=== PATIENT | male | born 1965 | race African-American/Black ===

== ENCOUNTER 2019-12-31 21:27 | Inpatient (IN) | payer OTHER, SELFPAY ==
--- NOTE | ~2019-12-31 | XR_ITS ---
EXAMINATION: XR chest 1V portable EXAM DATE: 01/05/2020 05:47 INDICATION: Cough, rising white blood cell count. TECHNIQUE: Portable AP frontal chest x-ray was obtained. Comparison is made to prior examination from 12/31/2019. FINDINGS: Interval development of patchy bibasilar opacities, some linear and some less well-defined involving left lower lobe more than right. No pneumothorax or pleural effusion. Cardiomediastinal darlin houette is normal. There are no osseous abnormalities identified. IMPRESSION: Development of lower lung zone infection and/or atelectasis. Reviewed, dictated and finalized at location A.
--- NOTE | ~2019-12-31 | XR_ITS ---
EXAMINATION: XR chest 1V portable INDICATION: Cough and weakness TECHNIQUE: Portable AP chest at 2315 hours COMPARISON: 01/06/2019 FINDINGS: The lungs are free of acute opacities. There is no pleural effusion or pneumothorax. The ca rdiomediastinal silhouette is normal. IMPRESSION: 1. No acute cardiopulmonary abnormality. Reviewed, dictated and finalized at location A.
--- NOTE | ~2019-12-31 | MR_ITS ---
EXAMINATION: MR brain/brain stem wo/w con DATE: 01/02/2020 16:00 INDICATION: Weakness. HIV. TECHNIQUE: Magnetic resonance imaging (MRI) of the brain and brainstem was performed without and with 10 mL Multihance intravenous contrast. Sequences included sagittal and axial T1-weighted SE, axial d iffusion-weighted FS SE, axial T2*-weighted GRE, axial T2-weighted FLAIR, and axial T2-weighted FSE. Postcontrast axial and coronal T1-weighted SE was obtained. Apparent diffusion coefficient (ADC) maps were created. COMPARISON: Head CT dated 01/01/2020 FINDINGS: There are no areas of restricted diffusion to suggest acute infarction. Small old lacunar infarct at the right thalamus. No intracranial hemorrhage. There are scattered areas of nonspecific increased T2 -weighted signal intensity in the cerebral white matter, predominantly involving the deep and periven tricular white matter. Atypically prominent increased T2 signal in the soraya. On postcontrast images t here is suggestion of subtle curvilinear enhancement at the periphery of a 4 mm lesion in the central soraya and 14 x 9 mm lesion at the slightly more cephalad left side of the soraya. Specificity on the po stcontrast images is however limited by motion artifact. There are no intraparenchymal signal abnorma lities seen on the other pulse sequences. The ventricles are symmetric and normal in size. There are no abnormal extra-axial fluid collections. Flow voids are seen in the cerebral arteries on the T2-lissa ghted sequences consistent with their expected patency. Visualized orbits and soft tissues are unrema rkable. There is some mucus opacifying the posterior left ethmoid air cell. Mild mucosal thickening i n the right maxillary sinus. IMPRESSION: 1. Atypically prominent nonspecific increased T2 signal in the soraya without restricted diffusion and with possible associated curvilinear enhancement on the postcontrast images. The postcontrast images are however limited by motion and the latter finding could be artifactual. Differential would include sequela of chronic small vessel ischemic disease, infectious encephalitis including HIV or secondary opportunistic infection, HIV related progressive multifocal leukoencephalopathy, malignancy such as astrocytoma or lymphoma and demyelinating disease such as multiple sclerosis. Consider contrast-enhan dae head CT more definitive assessment for enhancement. 2. Chronic old lacunar infarct at the right thalamus. Reviewed, dictated and finalized at location A. IMPRESSION: 1. Atypically prominent nonspecific increased T2 signal in the soraya without res tricted diffusion and with possible associated curvilinear enhancement on the p ostcontrast images. The postcontrast images are however limited by motion and t he latter finding could be artifactual. Differential would include sequela of c hronic small vessel ischemic disease, infectious encephalitis including HIV or secondary opportunistic infection, HIV related progressive multifocal leukoence phalopathy, malignancy such as astrocytoma or lymphoma and demyelinating diseas e such as multiple sclerosis. Consider contrast-enhanced head CT more definitiv e assessment for enhancement. 2. Chronic old lacunar infarct at the right thalamus.
--- NOTE | ~2019-12-31 | CT_ITS ---
EXAMINATION: CT brain wo/w con DATE: 01/03/2020 13:36 INDICATION: Pontine disease. HIV. TECHNIQUE: Computed tomography (CT) of the head was performed without and with 100 mL Omnipaque 350 i ntravenous contrast. The mA was adjusted according to patient size. Iterative reconstruction techniqu e was employed. The dose-length product was 1210.67 mGy-cm. COMPARISON: Head CT 01/01/2020, brain MRI 01/02/2020 FINDINGS: There are old lacunar infarcts involving the right thalamus, right caudate nucleus, left ba abigail ganglia, and anterior limb of left internal capsule. There are scattered areas of low attenuation in the cerebral white matter. There is no intracranial hemorrhage or acute infarction. There is a 5 mm enhancing lesion in the soraya. There are areas of contrast enhancement in the left frontoparietal d eep white matter. There is expected dilatation of anterior body of left lateral ventricle. There is m ild mucosal thickening in the paranasal sinuses. The orbits are normal. There is a trace right mastoi d effusion. IMPRESSION: 1. Enhancing lesions in the soraya and left frontoparietal deep white matter. The differential diagnosi s includes subacute infarcts, immune reconstitution inflammatory syndrome, infection, and lymphoma. 2. Moderate nonspecific cerebral white matter disease. The differential diagnosis includes chronic sm all vessel ischemic disease, HIV encephalopathy, and progressive multifocal leukoencephalopathy. 3. Old lacunar infarcts involving the right thalamus, bilateral basal ganglia, and anterior limb left internal capsule. Reviewed, dictated and finalized at location B. IMPRESSION: 1. Enhancing lesions in the soraya and left frontoparietal deep white matter. The differential diagnosis includes subacute infarcts, immune reconstitution infla mmatory syndrome, infection, and lymphoma. 2. Moderate nonspecific cerebral white matter disease. The differential diagnos is includes chronic small vessel ischemic disease, HIV encephalopathy, and prog ressive multifocal leukoencephalopathy. 3. Old lacunar infarcts involving the right thalamus, bilateral basal ganglia, and anterior limb left internal capsule.
--- NOTE | ~2019-12-31 | XR_ITS ---
XR hip LT min 3V w AP pelvis 01/02/2020 20:24 Indication: Hip pain. No known injury. Procedure: AP pelvis and 3 views left hip Comparison: 01/07/2019 Findings: Pelvic rings are intact. Stable sclerotic lesion of the right femoral head, consistent with osteonecrosis. There is patchy ostial lysis and sclerosis of the left femoral head with collapse of the superior articular surface. There is secondary osteoarthritis of the left hip. No significant sof t tissue abnormality. No foreign bodies. 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 2: No significant change to osteonecrosis of the left femoral head with articular surface collapse. S table secondary osteoarthritis. Reviewed, dictated and finalized at location A. 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 2: No significant change to osteonecrosis of the left femoral head with articul ar surface collapse. Stable secondary osteoarthritis.
--- NOTE | ~2019-12-31 | CT_ITS ---
EXAMINATION: CT brain wo con INDICATION: Weakness, history of stroke COMPARISON: None TECHNIQUE: Standard unenhanced head CT. The dose-length product (DLP) was 605.33 mGy-cm. The mA was a djusted according to patient size. Iterative reconstruction technique was employed. FINDINGS: There is no intracranial hemorrhage, acute infarction, or abnormal mass lesion. There is an area of prior infarction in the left basal ganglia with ex vacuo enlargement of the anterior horn of the left lateral ventricle. There is no abnormal mass effect or midline shift. The mendieta-white matter differentiation is normal. The basal cisterns are patent. The orbits are normal. There is mild mucos al thickening of the paranasal sinuses. IMPRESSION: 1. No acute intracranial abnormality. Reviewed, dictated and finalized at location A.
--- NOTE | ~2019-12-31 | CT_ITS ---
EXAMINATION: CT brain wo/w con DATE: 01/11/2020 14:40 INDICATION: Pontine mass. TECHNIQUE: Computed tomography (CT) of the head was performed without and with 100 mL Omnipaque 350 i ntravenous contrast. The mA was adjusted according to patient size. Iterative reconstruction techniqu e was employed. The dose-length product was 1362.00 mGy-cm. COMPARISON: Head CT 01/03/2020, brain MRI 01/02/2020 FINDINGS: There are old lacunar infarcts involving the bilateral thalami, bilateral basal ganglia, an d anterior limb left internal capsule. There are scattered areas of low attenuation in the cerebral w raffaele matter. There is a 10 mm enhancing mass in the left frontal lobe deep white matter. There is a 6 mm enhancing mass in the right frontoparietal deep white matter. Abnormal enhancement is not detecte d in the soraya, but MRI would be more sensitive. The ventricles are normal in size. There is mild muco abigail thickening in the paranasal sinuses. There is a trace right mastoid effusion. The orbits are norm al. IMPRESSION: 1. Faintly enhancing lesions in the left frontal lobe deep white matter and right frontoparietal deep white matter similar to the prior exam. The differential diagnosis includes subacute infarcts, immun e reconstitution inflammatory syndrome, infection, and lymphoma. 2. Stable moderate nonspecific cerebral white matter disease. The differential diagnosis includes chr onic small vessel ischemic disease, HIV encephalopathy, and progressive multifocal leukoencephalopath y. 3. Old lacunar infarcts in the thalami, bilateral basal ganglia, and anterior limb left internal caps ule. Reviewed, dictated and finalized at location A. IMPRESSION: 1. Faintly enhancing lesions in the left frontal lobe deep white matter and rig ht frontoparietal deep white matter similar to the prior exam. The differential diagnosis includes subacute infarcts, immune reconstitution inflammatory syndr ome, infection, and lymphoma. 2. Stable moderate nonspecific cerebral white matter disease. The differential diagnosis includes chronic small vessel ischemic disease, HIV encephalopathy, a nd progressive multifocal leukoencephalopathy. 3. Old lacunar infarcts in the thalami, bilateral basal ganglia, and anterior l imb left internal capsule.
--- NOTE | ~2019-12-31 | XR_ITS ---
EXAMINATION: XR lumbar puncture diagnostic DATE: 01/05/2020 15:05 INDICATION: Weakness. Enhancing pontine lesion. TECHNIQUE: The procedure including the risks and benefits was discussed with the patient. Risks discu ssed included spinal headache, cerebrospinal fluid leak, bleeding, and infection. The patient underst ood the risks and agreed to proceed. A timeout was performed to verify the patient's name, date of , and procedure to be performed. The skin overlying the L4-L5 level was prepped and draped in usual sterile fashion. Subcutaneous 1% lidocaine was used for local anesthesia. A 22 gauge spinal n eedle was advanced under fluoroscopic guidance. The needle was removed and the entry site was cleaned and dressed. There were no immediate complications. . FINDINGS: Real-time fluoroscopy demonstrates the needle at the L4-L5 level. Opening pressure was 13 c m water. (Normal range is variably defined as 6-20 cm water and up to 25 cm water in obese patients. Pressure >25 cm water is one of the modified Dandy criteria for idiopathic intracranial hypertension) . 14 mL of clear, colorless fluid was collected in 4 tubes. IMPRESSION: 1. Successful fluoro-guided lumbar puncture. Reviewed, dictated and finalized at location A.
--- NOTE | ~2019-12-31 | US_ITS ---
EXAMINATION: US renal BI DATE: 01/04/2020 08:48 INDICATION: Worsening kidney function. TECHNIQUE: Multiple ultrasound grayscale images of the kidneys were obtained. COMPARISON: None. FINDINGS: The right kidney measures 9.4 x 4.8 x 5.1 cm. The left kidney measures 9.1 x 5.5 x 4.1 cm. The kidney s demonstrate normal parenchymal echogenicity. There is no hydronephrosis. The bladder is not well di stended. IMPRESSION: 1. Normal kidneys. No hydronephrosis. Reviewed, dictated and finalized at location B.
[2019-12-31 21:32] VITALS: BP 119/81; PULSE 100; RESP 18; TEMP 37.2; O2SAT 100
--- NOTE | 2019-12-31 21:53 | ED.GENADULT ---
HPI - General Adult General Chief complaint: Weakness Stated complaint: WEAKNESS Time Seen by Provider: 12/31/19 21:42 History of Present Illness HPI narrative: Patient is a 54-year-old male who presents the ER with increased weakness. History of CVA that left him using a walker and having some difficulty with speaking and with memory. Brought in by his sister. Patient's been urinating more frequently than usual and has had a stronger smell to urine. No fevers or chills or sweats. He is also been coughing for the last month. No known sick contacts. No known covered tonic contacts either. Patient has been so weak over the last 24 hours they have been using wheelchair to mobilize him around. Related Data Home Medications Medication Instructions Recorded Confirmed nhftinnkz-blcihjqq-[id number] ala 1 tablet PO DAILY 01/01/20 01/01/20 [Biktarvy] Allergies Allergy/AdvReac Type Severity Reaction Status Date / Time No Known Allergies Allergy Verified 01/01/20 05:19 Review of Systems Review of Systems: All systems reviewed & are unremarkable except as noted in HPI and below Constitutional: Constitutional: Denies chills, Denies fever(s) and Reports weakness ENT: Denies nasal congestion and Denies sore throat Cardiovascular: Cardiovascular: Denies chest pain and Denies rapid heart rate Respiratory: Respiratory: Reports cough and Denies dyspnea Gastrointestinal: Gastrointestinal: Denies abdominal pain, Denies nausea and Denies vomiting Genitourinary: Genitourinary: Denies dysuria and Reports urinary frequency PMFSH Past Medical History Medical History (Updated 01/01/20 @ 06:51 by Adeel Recinos MD) Elevated alkaline phosphatase level Encephalopathy H/O: HTN (hypertension) History of stroke with current residual effects HIV (human immunodeficiency virus infection) HSV (herpes simplex virus) infection Oral candidiasis UTI (urinary tract infection) Surgical History Surgical History (Updated 04/14/19 @ 13:19 by Giovanni Maradiaga) No history of previous surgery Social History Social History (Updated 04/19/19 @ 10:47 by Lindy Malik) Years smoked: 9 Smoking status: Light tobacco smoker Tobacco type: cigarettes Second hand tobacco smoke exposure: Yes Alcohol intake: never Substance use: never Substance use type: does not use Gender identity (if verbalized by the patient): Male Sexual Orientation (if Verbalized by the Patient): Lesbian, Garcia, or Homosexual Spiritual care concerns: No Exam Narrative: Exam Narrative: GENERAL: Well-appearing, well-nourished, and in no acute distress. HEAD: Normocephalic, atraumatic. ENT: Mucous membranes moist. CHEST: Clear to auscultation. No respiratory distress. HEART: Regular rate and rhythm. Normal peripheral pulses. ABDOMEN: Soft, nontender, nondistended. SKIN: Warm, dry, no rash. NEURO: Alert and oriented x3. PSYCH: Normal mood and affect. Course Reevaluation(s) Reevaluation #1: Asx V-Tach on the monitor. Date: 12/31/19 Time: 22:01 Reevaluation #2: Discussed with Dr. Coulter. Recommends admission and echo. No amiodarone at this time as ectopy has resolved. Date: 12/31/19 Time: 22:11 Vital Signs Vital signs: Vital Signs Temperature 99.0 F 12/31/19 21:32 Pulse Rate 100 12/31/19 21:32 Respiratory Rate 18 12/31/19 21:32 Blood Pressure 119/81 12/31/19 21:32 Pulse Oximetry 100 12/31/19 21:32 Temperature 97.8 F 01/01/20 04:40 Pulse Rate 69 01/01/20 04:40 Respiratory Rate 18 01/01/20 04:40 Blood Pressure 140/85 01/01/20 04:40 Pulse Oximetry 100 01/01/20 04:40 Medical Decision Making Vital Signs Vital Signs: Vital Signs Temperature 99.0 F 12/31/19 21:32 Pulse Rate 100 12/31/19 21:32 Respiratory Rate 18 12/31/19 21:32 Blood Pressure 119/81 12/31/19 21:32 Pulse Oximetry 100 12/31/19 21:32 Temperature 97.8 F 01/01/20 04:40 Pulse Rate 69 01/01/20 04:40 Respiratory
--- NOTE | 2019-12-31 22:01 | ECG_ITS ---
Measurements Intervals [place] Rate: 84 P: 30 MS: 184 QRS: -33 QRSD: 101 T: 58 QT: 390 QTc: 463 Interpretive Statements SINUS RHYTHM LEFT AXIS DEVIATION LOW QRS VOLTAGE IN PRECORDIAL LEADS BORDERLINE R WAVE PROGRESSION, ANTERIOR LEADS BORDERLINE T WAVE ABNORMALITY- DIFFUSE LEADS BASELINE ARTIFACT- V3-V4 BORDERLINE ECG Electronically Signed On 01-01-2020 7:02:33 CDT by Mal Muhammad D.O.
[2019-12-31 22:17] LABS: Basophils Absolute Auto 0.1 K/mm3 (0.0-0.1); Basophils Percent Auto 0.8 % (0.2-1.2); Eosinophils Absolute Auto 0.1 K/mm3 (0-0.3); Eosinophils Percent Auto 0.9 % (0-4.4); Hematocrit 29.2 % (42.0-52.0); Hemoglobin 9.1 g/dL (14.0-18.0); Immature Granulocyte Absolute 0.03 K/mm3 (0.00-0.031); Immature Granulocyte Percent A 0.3 % (0-0.5); Lymphocytes Absolute Auto 1.69 K/mm3 (0.9-3.2); Lymphocytes Percent Auto 16.5 % (18.3-44.2); Mean Corpuscular HGB Conc 31.2 g/dl (32-36); Mean Corpuscular Hemoglobin 24.5 pg (26-34); Mean Corpuscular Volume 78.7 fl (80-100); Mean Platelet Volume 9.2 fl (7.4-10.4); Monocytes Absolute Auto 0.7 K/mm3 (0.1-0.6); Monocytes Percent Auto 6.8 % (2.6-8.5); Neutrophils Absolute Auto 7.7 K/mm3 (1.3-6.7); Neutrophils Percent Auto 74.7 % (45.5-73.1); Platelet Count Result 402 k/mm3 (150-375); Red Blood Count 3.71 M/mm3 (4.6-6.20); Red Cell Distribution Width 18.6 % (11.5-14.5); White Blood Count 10.2 K/mm3 (4.5-10.0)
[2019-12-31] MEDS: SODIUM CHLORIDE 0.9% IV 1,000 ML 999 ML IV CONT (22:22)
[2019-12-31 22:30] LABS: Alanine Aminotransferase 9 U/L (4-50); Albumin Level 3.9 g/dL (3.5-5.1); Alkaline Phosphatase 167 U/L (38-126); Anion Gap 13 mmol/L (8-16); Aspartate Amino Transferase 26 U/L (17-59); Bilirubin,Total 0.3 mg/dL (0.2-1.3); Blood Urea Nitrogen 13 mg/dL (9-20); Calcium 9.5 mg/dL (8.4-10.2); Carbon Dioxide 23 mmol/L (22-30); Chloride 103 mmol/L (98-107); Estimated CRCL calculation 56 ml/min; Estimated Glomerular Filt Rate > 60; Glucose 116 mg/dL (75-110); Magnesium 2.3 mg/dL (1.6-2.3); Potassium 3.5 mmol/L (3.4-5.0); Sodium 139 mmol/L (137-145)
[2019-12-31 22:39] LABS: INR 1.1; Partial Thromboplastin Time 35.9 SECONDS (22.3-36.8); Prothrombin Time 14.3 Seconds (11.1-14.7)
[2019-12-31 22:40] LABS: Troponin I < 0.012 ng/mL (0.000-0.034)
[2019-12-31 22:48] LABS: Add Urine Microscopic? YES; Appearance Urine Cloudy (Clear); Bacteria Urine Trace /hpf; Bilirubin Urine Negative (Negative); Blood Urine Negative (Negative); Color Urine Yellow (Yellow); Glucose Urine UA Negative (Negative); Ketones Urine Negative (Negative); Leukocyte Esterase Ur Negative LEU/UL (Negative); Mucus Urine Rare /lpf; Nitrate Urine Negative (Negative); Protein Urine 1+ mg/dL (Negative); RBC Urine 0-2 /hpf (0-2); Specific Grav Ur 1.015 (1.001-1.035); Urobilinogen Urine Negative mg/dL (<2.0); WBC Urine 0-3 /hpf
[2019-12-31 23:45] VITALS: BP 126/92; PULSE 78; RESP 20; O2SAT 100
[2020-01-01] VITALS (11 sets, daily range): BP systolic 125–140; BP diastolic 73–94; PULSE 60–87; RESP 12–22; TEMP 35.8–36.9; O2SAT 100; BMI 17.7
--- NOTE | 2020-01-01 04:56 | ADMGEN ---
This patient, Justyn Jacob, was admitted to IMU Room 212-01 on 01/01/20 at 0435. Patient/family oriented to hospital policies and general routines including ID bracelet, bed and alarms, visiting hours, pain management, procedures, bathroom and other care routines, personal items, smoking policy, room service/diet, and visiting hours. Valuables list has been completed. Information on how to activate the Rapid Response Team has been discussed. Patient/Family are encouraged to report perceived risks to care and to ask questions if they do not understand what they are told or what they should do.
--- NOTE | 2020-01-01 08:13 | PM.IMHP ---
H&P: HPI History of Present Illness Date/Time: 01/01/20 08:13 Chief complaint: Weakness, V-Tach Nonsustained Narrative: Justyn Jacob is a 54yo male with hx of CVA and HIV here for increasing weakness. History of CVA with residual left sided weakness requiring walker, dysarthria and memory loss. He lives with his sister who states patient is independent with ADLs. Patient states he has been weak over the past month. He has also had a slight nonproductive cough during this time. He denies any fever, chills, chest pain, shortness of breath, nausea, vomiting, diarrhea, constipation, melena, hematochezia, dysuria, hematuria, leg pain, back pain, abdominal pain, headache. History is limited because of his dysarthria and memory issues. Sister was called and history was supplemented by her. Patient was doing well until 3 days before admission when he stopped eating and drinking for unclear reasons. He was tolerating the Ensure. The family called the primary care doctor and sodium tablets were called in. Patient has had similar issues with weakness related to hyponatremia in the past. Patient normally is independent with his ADLs. However over the past few days he has been wetting the bed. There has been no symptoms such as fever, chills, seizure-like activity but the patient seem to shake when he was standing. Besides sodium tablets, there have been no medication changes. Because of the weakness patient is brought to the emergency room evaluation. In the emergency room, patient was hemodynamically stable. Chest x-ray was clear. He had no acute EKG findings. Lab work was unrevealing. There was a episode of abnormal heart rhythm concerning for nonsustained V-tach. Although on evaluation, it appears to be related to artifact. Patient admitted to the IMU for further care. Review of Systems Review of Systems: All systems reviewed & are unremarkable except as noted in HPI and below PMFSH Past Medical History Medical History (Updated 01/02/20 @ 19:52 by Vaughn Vang MD) Chronic anemia Elevated alkaline phosphatase level Encephalopathy H/O: HTN (hypertension) History of stroke with current residual effects HIV (human immunodeficiency virus infection) HSV (herpes simplex virus) infection Oral candidiasis Osteoarthritis of left hip UTI (urinary tract infection) Surgical History Surgical History No history of previous surgery Family History Family History Father Hypertension Mother Myocardial infarction Cancer Hypertension Cerebrovascular accident Sibling Cancer Cerebrovascular accident Acute Crohn's disease Social History Social History Social History: Smokes half pack a day. No drug use. Occasion drinks alcohol. Lives with the sister. Patient is full code. he nominates his sister to be the individual would make medical decisions for him Years smoked: 9 Smoking status: Light tobacco smoker Tobacco type: cigarettes Second hand tobacco smoke exposure: Yes Alcohol intake: never Substance use: never Substance use type: does not use Gender identity (if verbalized by the patient): Male Sexual Orientation (if Verbalized by the Patient): Lesbian, Garcia, or Homosexual Spiritual care concerns: No Meds Home Medications and Allergies Home Medications Medication Instructions Recorded Confirmed Type valacyclovir 500 mg tablet 500 mg PO DAILY #90 tablet 04/19/19 01/01/20 Rx amlodipine 10 mg tablet 10 mg PO DAILY #90 tablet 11/18/19 01/01/20 Rx nystatin 100,000 unit/mL oral 5 ml PO QID #250 ml 12/20/19 01/01/20 Rx suspension sodium chloride 1 gram tablet 1,000 mg PO DAILY #30 tablet 12/30/19 01/01/20 Rx [id number]-cymcouvz-msrufli ala 1 tablet PO DAILY 01/01/20 01/01/20 History [Biktarvy] Allergies Allergy/AdvReac Type Severity Mica
--- NOTE | 2020-01-01 09:50 | PM.CNCAR ---
History of Present Illness History of Present Illness Consult date/time: 01/01/20 09:50 date of consult: 01/01/2020 reason for consult: Requesting physician: Chief complaint: HPI: EKG upon presentation which I personally evaluated showed sinus rhythm, leftward axis, poor R-wave progression, nonspecific T-wave abnormality. Serial troponins are negative. Chest x-ray is unremarkable. Reason For Visit: Weakness, V-Tach Nonsustained Review of Systems Constitutional: Constitutional: Denies chills, Denies fatigue, Denies fever(s) and Denies headache(s) Eyes: Eyes: Reports as per HPI, Denies change in vision, Denies loss of vision and Denies eye pain ENT: Reports as per HPI, Reports Normal hearing present, Denies headache(s), Denies lip swelling, Denies epistaxis and Denies sore throat Cardiovascular: Cardiovascular: Reports as per HPI, Denies chest pain, Denies syncope, Denies irregular heart rhythm, Denies lightheadedness and Denies dyspnea Respiratory: Respiratory: Reports as per HPI, Denies cough, Denies dyspnea and Denies wheezing Gastrointestinal: Gastrointestinal: Reports as per HPI, Denies abdominal pain, Denies melena, Denies nausea and Denies vomiting Genitourinary: Genitourinary: Reports as per HPI Musculoskeletal: Musculoskeletal: Reports as per HPI, Denies myalgias, Denies muscle cramps and Denies muscle weakness Integumentary/Breasts: Skin/Breast: Reports as per HPI, Denies pruritus and Denies rash Neurologic: Reports as per HPI, Reports Normal hearing present, Denies behavioral changes, Denies syncope, Denies headache(s) and Denies loss of vision Psychiatric: Psychiatric: Reports as per HPI, Denies anxiety, Denies behavioral changes and Denies depression Endocrine: Endocrine: Reports as per HPI, Denies fatigue, Denies polydipsia and Denies polyuria Hematologic/Lymphatic: Hematologic/Lymphatic: Reports as per HPI, Denies easy bleeding and Denies easy bruising Allergic/Immunologic: Allergic/Immunologic: Reports as per HPI, Denies lip swelling and Denies wheezing PMFSH Past Medical History Medical History Chronic anemia Elevated alkaline phosphatase level Encephalopathy H/O: HTN (hypertension) History of stroke with current residual effects HIV (human immunodeficiency virus infection) HSV (herpes simplex virus) infection Oral candidiasis UTI (urinary tract infection) Surgical History Surgical History No history of previous surgery Family History Family History Father Hypertension Mother Myocardial infarction Cancer Hypertension Cerebrovascular accident Sibling Cancer Cerebrovascular accident Acute Crohn's disease Social History Social History Social History: Smokes half pack a day. No drug use. Occasion drinks alcohol. Lives with the sister. Patient is full code. he nominates his sister to be the individual would make medical decisions for him Years smoked: 9 Smoking status: Light tobacco smoker Tobacco type: cigarettes Second hand tobacco smoke exposure: Yes Alcohol intake: never Substance use: never Substance use type: does not use Gender identity (if verbalized by the patient): Male Sexual Orientation (if Verbalized by the Patient): Lesbian, Garcia, or Homosexual Spiritual care concerns: No Meds Home Medications and Allergies Home Medications Medication Instructions Recorded Confirmed Type valacyclovir 500 mg tablet 500 mg PO DAILY #90 tablet 04/19/19 01/01/20 Rx amlodipine 10 mg tablet 10 mg PO DAILY #90 tablet 11/18/19 01/01/20 Rx nystatin 100,000 unit/mL oral 5 ml PO QID #250 ml 12/20/19 01/01/20 Rx suspension sodium chloride 1 gram tablet 1,000 mg PO DAILY #30 tablet 12/30/19 01/01/20 Rx [id number] ala 1 tablet PO DAILY
--- NOTE | 2020-01-01 11:54 | PCSTNOTE ---
Bedside swallow evaluation complete. Please seen ST evaluation for details and diet recommendations.
[2020-01-01] MEDS: ENOXAPARIN 40 MG/0.4 ML SYRINGE SUB-Q (12:04)
--- NOTE | 2020-01-01 14:06 | PHAR ---
HOME MED VERIFIED BIKTARVY 50/200/25 ONE TABLET DAILY
--- NOTE | 2020-01-01 16:44 | PC.NURSE ---
This patient, Justyn Jacob, was received from [imu ] on 01/01/20 at 1635. Personal belongings list checked and signed. Patient/family oriented to unit policies and routines. Report received from Miladys.
--- NOTE | 2020-01-01 18:13 | PC.NURSE ---
This patient, Justyn Jacob, was transferred to [facility][ ] on 01/01/20 at 1630. Personal belongings sent with patient. Belongings list checked and signed with receiving [ ]. Report given to [Jero ]. Appropriate documentation sent with patient.
[2020-01-02 02:00] VITALS: BP 117/84; PULSE 85; RESP 20; TEMP 36.9; O2SAT 100
[2020-01-02 06:00] VITALS: BP 137/82; PULSE 75; RESP 16; TEMP 36.7; O2SAT 100
[2020-01-02] MEDS: amLODIPine BESYLATE 5 MG TABLET 10 MG PO (09:08)
[2020-01-02] MEDS: valACYclovir HCL 500 MG TABLET PO (09:08)
[2020-01-02] MEDS: ENOXAPARIN 40 MG/0.4 ML SYRINGE SUB-Q (09:08)
[2020-01-02] MEDS: DOCUSATE SODIUM 100 MG CAPSULE PO ×2 (10:31→22:01)
[2020-01-02 10:58] VITALS: BMI 17.5
[2020-01-02 14:00] VITALS: BP 134/94; PULSE 111; RESP 18; TEMP 36.9; O2SAT 99
--- NOTE | 2020-01-02 19:17 | PM.IMPN ---
Progress Note: A&P Assessment and Plan (1) Weakness: Code(s): R53.1 - Weakness Status: Acute Assessment and Plan: Etiology unclear. Sister states patient may be acting up because she will not let him drink soda continuously without at least drinking some water. CT of the brain showing no acute process. Leg giving out could be related to his general left sided weakness (but old CVA was left basal ganglia so does not fit clinically), +/- new CVA +/- HIV related +/- related to chronic left hip pain. Proceeded with MRI which showed no acute CVA but does show old right thalamus lacunar CVA - no mention of left basal ganglia lesion (called to clarify with radiology by no answer) but this could explain the left sided weakness. However, MRI also showing possible lesion in the soraya. Will proceed with contrast-enhanced CT brain to further delineate. Neuro consult. May need LP (2) Lesion of soraya: Code(s): G93.9 - Disorder of brain, unspecified Status: Acute Assessment and Plan: As above. (3) Osteoarthritis of left hip: Code(s): M16.12 - Unilateral primary osteoarthritis, left hip Status: Acute Assessment and Plan: Hip xray in December 2018 showing: Osteonecrosis of bilateral femoral heads and left hip articular surface collapse and secondary moderate to severe left hip osteoarthritis. Spoke with Dr Cuello who reviewed the films and recommended left hip injection (he provided the appropriate doses and read back). Will order xrays. Hip injection ordered but in light of the MRI findings, will hold the injection until the above can be further evaluated. (4) Essential hypertension: Code(s): I10 - Essential (primary) hypertension Status: Acute Assessment and Plan: Blood pressure well controlled. Continue Norvasc. Continue to monitor. (5) HIV (human immunodeficiency virus infection): Code(s): B20 - Human immunodeficiency virus [HIV] disease Status: Acute Assessment and Plan: As above. Continue Biktarvy. Family may need to bring this in. (6) History of stroke with residual effects: Code(s): I69.30 - Unspecified sequelae of cerebral infarction Status: Acute Assessment and Plan: As above. Continue PT and OT. (7) DVT prophylaxis: Code(s): Z29.9 - Encounter for prophylactic measures, unspecified Status: Acute Assessment and Plan: Lovenox (8) Non-sustained ventricular tachycardia: Code(s): I47.2 - Ventricular tachycardia Status: Acute Assessment and Plan: Telemetry strip reviewed and this is more consistent with artifact than nonsustained V-tach. Telemetry stopped adn Cardiology consult cancelled. Subjective Date/time seen: 01/02/20 19:17 Interval history: 54yo male with HIV here for weakness. Patient eating okay. No CP. Feels well. No abd pain. No BM in 5 days. Patient complains of hip pain and then points to his left hip. Spoke with sister by phone and she stated that the patient is due for another hip injection (last one was February). Patient seen earlier in the day. Called by RN later and informed that when he walked, his left leg gave out. Exam Narrative: Exam Narrative: AF 134/94 111 18 99% ra Gen - NARD Chest - CTA bilaterally, nml RR CV - RRR S1/S2, nml RR Abd - soft, NT/ND, +BS Ext - no pedal edema; Nml passive ROM left hip Neuro - dysarthric speech. Mild left-sided weakness. Psych - normal mood and affect. Skin -Diffuse dry scaly skin with flaking. Objective Data Vital Signs Vital Signs: Vital Signs - 24 hr 01/01/20 22:00 01/02/20 02:00 01/02/20 06:00 Temperature 98 F 98.4 F 98.1 F Pulse Rate 82 85 75 Respiratory Rate 16 20 16 Blood Pressure 134/84 117/84 137/82 Pulse Oximetry 100 100 100 01/02/20 14:00 Temperature 98.4 F Pulse Rate 111 H Respiratory Rate 18 Blood Pressure 134/94 H Pul
[2020-01-02 22:00] VITALS: BP 122/83; PULSE 94; RESP 20; TEMP 37.5; O2SAT 92
[2020-01-03 06:22] LABS: Hemoglobin 9.5 g/dL (14.0-18.0); Mean Corpuscular HGB Conc 31.7 g/dl (32-36); Mean Corpuscular Hemoglobin 24.5 pg (26-34); Mean Corpuscular Volume 77.3 fl (80-100); Mean Platelet Volume 8.6 fl (7.4-10.4); Platelet Count Result 445 k/mm3 (150-375); Red Blood Count 3.88 M/mm3 (4.6-6.20); White Blood Count 13.6 K/mm3 (4.5-10.0)
[2020-01-03 06:39] LABS: Anion Gap 11 mmol/L (8-16); Blood Urea Nitrogen 14 mg/dL (9-20); Calcium 9.6 mg/dL (8.4-10.2); Carbon Dioxide 25 mmol/L (22-30); Chloride 99 mmol/L (98-107); Estimated CRCL calculation 46 ml/min; Estimated Glomerular Filt Rate > 60; Glucose 93 mg/dL (75-110); Potassium 3.1 mmol/L (3.4-5.0); Sodium 135 mmol/L (137-145)
[2020-01-03 07:07] LABS: Iron 30 ug/dL (49-181)
[2020-01-03 07:17] LABS: Percent Iron Saturation 10 % (20-50)
[2020-01-03 07:39] LABS: Thyroid Stimulating Hormone Reflex 0.866 uIU/mL (0.465-4.68)
[2020-01-03 08:55] LABS: Folic Acid 9.8 ng/mL (2.76->20)
[2020-01-03] MEDS: amLODIPine BESYLATE 5 MG TABLET 10 MG PO (09:23)
[2020-01-03] MEDS: ENOXAPARIN 40 MG/0.4 ML SYRINGE SUB-Q (09:23)
[2020-01-03] MEDS: valACYclovir HCL 500 MG TABLET PO (09:23)
[2020-01-03] MEDS: DOCUSATE SODIUM 100 MG CAPSULE PO ×2 (09:23→21:41)
[2020-01-03 14:00] VITALS: BP 166/70; PULSE 100; RESP 18; TEMP 36.9; O2SAT 100
[2020-01-03] MEDS: POTASSIUM CHLORIDE 20 MEQ PACKET (FOR LIQUID) 40 MEQ PO (14:52)
--- NOTE | 2020-01-03 15:17 | WPDNEUROPN ---
Progress Note: A&P Assessment and Plan (1) Chronic anemia: Code(s): D64.9 - Anemia, unspecified Status: Acute (2) Lesion of soraya: Code(s): G93.9 - Disorder of brain, unspecified Status: Acute (3) Osteoarthritis of left hip: Code(s): M16.12 - Unilateral primary osteoarthritis, left hip Status: Acute (4) DVT prophylaxis: Code(s): Z29.9 - Encounter for prophylactic measures, unspecified Status: Acute (5) Non-sustained ventricular tachycardia: Code(s): I47.2 - Ventricular tachycardia Status: Acute (6) Weakness: Code(s): R53.1 - Weakness Status: Acute (7) Elevated alkaline phosphatase level: Code(s): R74.8 - Abnormal levels of other serum enzymes Status: Acute (8) Oral candidiasis: Code(s): B37.0 - Candidal stomatitis Status: Acute (9) Essential hypertension: Code(s): I10 - Essential (primary) hypertension Status: Acute (10) Hemiparesis: Code(s): G81.90 - Hemiplegia, unspecified affecting unspecified side Status: Acute (11) History of stroke with residual effects: Code(s): I69.30 - Unspecified sequelae of cerebral infarction Status: Acute (12) HIV (human immunodeficiency virus infection): Code(s): B20 - Human immunodeficiency virus [HIV] disease Status: Acute (13) History of stroke with current residual effects: Code(s): I69.30 - Unspecified sequelae of cerebral infarction Status: Acute (14) HSV (herpes simplex virus) infection: Code(s): B00.9 - Herpesviral infection, unspecified Status: Acute Additional Plan enhancing lesions in the brainstem is bothersome as progressive multifocal encephalopathy usually does not enhance to my recollection in any event differential diagnosis is broad in Immunocompromised host and it will be difficult to discern central versus peripheral he may have both meaning the central nervous system disease and also peripheral nervous is dizzy him is a like peripheral neuropathy the thought process of the hospitalist Dr. Vang is well taken and I thing 1 should proceed doing a lumbar puncture provided that will be of any benefit in this gentleman I am not clear whether not who is giving him antiviral agent it will be nice to know if there is any infectious disease person involved and he can guide us if you want to pursue with lumbar puncture and if there is a hope for him to to be treated whatever we find on the other hand if he does have progressive leukoencephalopathy I am not really sure there is any specific medication we can prescribe but it can be certainly looked into Review of Systems Review of Systems: All systems reviewed & are unremarkable except as noted in HPI and below Exam Const: General: comfortable and no acute distress HENMT: General nose exam: Normal nares present Mouth: Yes moist mucous membranes Eyes: General: appearance normal, both eyes and all related structures Neck: Neck: supple and no JVD Other: keeps his neck tilted Resp: Effort & Inspection: normal respiratory effort Auscultation: clear to auscultation bilaterally Cardio: Rate: regular rate Rhythm: regular rhythm GI: Auscultation: normal bowel sounds Neuro: Other: patient is awake and alert will not talk seems like it is poorly cooperative and generalized weakness of both upper lower extremities with depressed reflexes and negative Babinski sign clearly he may have peripheral neuropathy related to underlying HIV disease Extrem: General: normal to inspection Psych: Other: hard to assess as he would not talk Objective Data Vital Signs Vital Signs: Vital Signs - 24 hr 01/02/20 22:00 01/03/20 14:00 Temperature 37.5 C 36.9 C Pulse Rate 94 100 Respiratory Rate 20 18 Blood Pressure 122/83 166/70 H Pulse Oximetry 92 100 Intake/Output Intake/Output: Intake & Output 12/31/19 01/01/20 01/02/20 01/03/20 23:59 23:59 23
[2020-01-03] MEDS: POTASSIUM CHLORIDE 20 MEQ PACKET (FOR LIQUID) PO (16:29)
--- NOTE | 2020-01-03 17:29 | PM.IMPN ---
Progress Note: A&P Assessment and Plan (1) Non-sustained ventricular tachycardia: Code(s): I47.2 - Ventricular tachycardia Status: Acute Assessment and Plan: Telemetry strip reviewed and this is more consistent with artifact than nonsustained V-tach. Okay to remove telemetry (2) Weakness: Code(s): R53.1 - Weakness Status: Acute Assessment and Plan: Etiology unclear. Sister states patient may be acting up because she will not let him drink soda continuously without at least drinking some water. CT of the brain with contrast broad diff possible infectious No change in medications. . Start PT and OT. Continue to monitor for now and probable proceed with LP 01/03. (3) Essential hypertension: Code(s): I10 - Essential (primary) hypertension Status: Acute Assessment and Plan: Blood pressure well controlled. Resume Norvasc. Continue to monitor. (4) History of stroke with residual effects: Code(s): I69.30 - Unspecified sequelae of cerebral infarction Status: Acute Assessment and Plan: was likely contributing to his weakness. Start PT and OT. (5) HIV (human immunodeficiency virus infection): Code(s): B20 - Human immunodeficiency virus [HIV] disease Status: Acute Assessment and Plan: Stable. Resume Biktarvy. family may need to bring this in. (6) Chronic anemia: Code(s): D64.9 - Anemia, unspecified Status: Acute Assessment and Plan: Hgb low but stable in the 7-9 range for past year. [place] anemia of chronic disease. . (7) DVT prophylaxis: Code(s): Z29.9 - Encounter for prophylactic measures, unspecified Status: Acute Assessment and Plan: Lovenox on hold for possible LP 01/03 Subjective Date/time seen: 01/03/20 17:29 Interval history: Date of visit 01/02 54yo male with HIV here for weakness. Patient eating okay. No CP. Feels well. No abd pain. Patient complains of hip pain and then points to his left hip. Dr Vang Spoke with sister by phone and she stated that the patient is due for another hip injection (last one was February). Patient seen earlier in the day. . Exam Narrative: Exam Narrative: AF 162/70 100 18 99% ra Gen - NARD sitting in chair Chest - CTA bilaterally, nml RR CV - RRR S1/S2, nml RR Abd - soft, NT/ND, +BS Ext - no pedal edema; Nml passive ROM left hip Neuro - dysarthric speech. Mild left-sided weakness. Psych - normal mood and affect. Skin -Diffuse dry scaly skin with flaking. Objective Data Vital Signs Vital Signs: Vital Signs - 24 hr 01/02/20 22:00 01/03/20 14:00 Temperature 37.5 C 36.9 C Pulse Rate 94 100 Respiratory Rate 20 18 Blood Pressure 122/83 166/70 H Pulse Oximetry 92 100 Intake/Output Intake/Output: Intake & Output 12/31/19 01/01/20 01/02/20 01/03/20 23:59 23:59 23:59 23:59 Intake Total 90 720 300 Output Total 0 300 Balance 90 420 300 Meds/Results Medications: Active Medications Generic Name Dose Route Start Last Admin Trade Name Freq PRN Reason Stop Dose Admin Acetaminophen 650 mg 01/01/20 09:52 Tylenol Tablet PO Q6H PRN Mild Pain (1-3) or Fever Amlodipine Besylate 10 mg 01/02/20 09:00 01/03/20 09:23 Norvasc PO 10 mg DAILY BESS Administration Docusate Sodium 100 mg 01/02/20 10:15 01/03/20 09:23 Colace Capsule PO 100 mg Q12HR EBSS Administration Enoxaparin Sodium 40 mg 01/01/20 09:50 01/03/20 09:23 Lovenox SUB-Q 40 mg DAILY BESS Administration Promethazine HCl 12.5 mg 01/01/20 02:27 Phenergan Inj IV PUSH Q6H PRN Nausea Valacyclovir HCl 500 mg 01/02/20 09:00 01/03/20 09:23 Valtrex PO 500 mg DAILY BESS Administration Radiology Results: ITS Impressions Chest X-Ray 01/01/20 08:45 IMPRESSION: 1. No acute cardiopulmonary abnormality. Brain MRI 01/02/20 16:08 I
[2020-01-03 19:50] VITALS: O2SAT 97
[2020-01-03 22:00] VITALS: BP 123/77; PULSE 106; RESP 18; TEMP 37.8; O2SAT 97
[2020-01-03 23:13] VITALS: TEMP 37.8
[2020-01-03] MEDS: ACETAMINOPHEN 325 MG TABLET 650 MG PO (23:13)
[2020-01-04] VITALS (7 sets, daily range): BP systolic 91–125; BP diastolic 63–85; PULSE 53–70; RESP 16–20; TEMP 36.4–37.5; O2SAT 96–100
[2020-01-04 06:15] LABS: Basophils Absolute Auto 0.1 K/mm3 (0.0-0.1); Basophils Percent Auto 0.4 % (0.2-1.2); Eosinophils Percent Auto 0.1 % (0-4.4); Hematocrit 29.6 % (42.0-52.0); Hemoglobin 9.5 g/dL (14.0-18.0); Immature Granulocyte Absolute 0.19 K/mm3 (0.00-0.031); Immature Granulocyte Percent A 0.8 % (0-0.5); Lymphocytes Absolute Auto 1.43 K/mm3 (0.9-3.2); Lymphocytes Percent Auto 6.3 % (18.3-44.2); Mean Corpuscular HGB Conc 32.1 g/dl (32-36); Mean Corpuscular Hemoglobin 24.9 pg (26-34); Mean Corpuscular Volume 77.5 fl (80-100); Mean Platelet Volume 9.1 fl (7.4-10.4); Monocytes Absolute Auto 1.1 K/mm3 (0.1-0.6); Monocytes Percent Auto 4.7 % (2.6-8.5); Neutrophils Absolute Auto 19.9 K/mm3 (1.3-6.7); Neutrophils Percent Auto 87.7 % (45.5-73.1); Platelet Count Result 475 k/mm3 (150-375); Red Blood Count 3.82 M/mm3 (4.6-6.20); Red Cell Distribution Width 18.6 % (11.5-14.5); White Blood Count 22.7 K/mm3 (4.5-10.0)
[2020-01-04 06:26] LABS: INR 1.2; Prothrombin Time 14.4 Seconds (11.1-14.7)
[2020-01-04 06:27] LABS: Partial Thromboplastin Time 43.1 SECONDS (22.3-36.8)
[2020-01-04 06:30] LABS: Anion Gap 13 mmol/L (8-16); Blood Urea Nitrogen 22 mg/dL (9-20); Calcium 9.8 mg/dL (8.4-10.2); Carbon Dioxide 25 mmol/L (22-30); Chloride 99 mmol/L (98-107); Estimated CRCL calculation 19 ml/min; Estimated Glomerular Filt Rate 26; Glucose 109 mg/dL (75-110); Potassium 3.3 mmol/L (3.4-5.0); Sodium 137 mmol/L (137-145)
[2020-01-04 07:09] LABS: Iron 22 ug/dL (49-181)
[2020-01-04 07:18] LABS: Percent Iron Saturation 7 % (20-50)
[2020-01-04 07:27] LABS: Platelet Estimate Adequate (Adequate)
[2020-01-04 07:28] LABS: Hypochromasia 1+ (NORMAL); Poikilocytosis 1+ (NORMAL); Target Cells 1+ (NORMAL)
[2020-01-04] MEDS: SODIUM CHLORIDE 0.9% IV 1,000 ML 125 ML IV CONT ×2 (09:11→18:57)
[2020-01-04] MEDS: valACYclovir HCL 500 MG TABLET PO (09:11)
[2020-01-04] MEDS: POTASSIUM CHLORIDE 20 MEQ TABLET 40 MEQ PO (09:11)
[2020-01-04] MEDS: DOCUSATE SODIUM 100 MG CAPSULE PO ×2 (09:11→20:32)
--- NOTE | 2020-01-04 16:06 | WPDNEUROPN ---
Progress Note: A&P Assessment and Plan (1) Chronic anemia: Code(s): D64.9 - Anemia, unspecified Status: Acute (2) Lesion of soraya: Code(s): G93.9 - Disorder of brain, unspecified Status: Acute (3) Osteoarthritis of left hip: Code(s): M16.12 - Unilateral primary osteoarthritis, left hip Status: Acute (4) Weakness: Code(s): R53.1 - Weakness Status: Acute (5) Elevated alkaline phosphatase level: Code(s): R74.8 - Abnormal levels of other serum enzymes Status: Acute (6) Oral candidiasis: Code(s): B37.0 - Candidal stomatitis Status: Acute (7) Hemiparesis: Code(s): G81.90 - Hemiplegia, unspecified affecting unspecified side Status: Acute (8) History of stroke with residual effects: Code(s): I69.30 - Unspecified sequelae of cerebral infarction Status: Acute (9) HIV (human immunodeficiency virus infection): Code(s): B20 - Human immunodeficiency virus [HIV] disease Status: Acute Additional Plan discussed with the hospitalist he has already put a consult for Dr. chavez the Infectious Disease specialist to see what he feels about his brain MRI findings which has a broad differential diagnoses including the TOPOGRAPHIC COMPUTATOR infection however clinically does not seem like the case if anything it might be a some kind of a disease process which is probable aunt in the immunocompromised host please refer to my previous note Based on with the Infectious Disease feels we will proceed according Review of Systems Review of Systems: All systems reviewed & are unremarkable except as noted in HPI and below Exam Const: General: comfortable and no acute distress HENMT: General nose exam: Normal nares present Mouth: Yes moist mucous membranes Eyes: General: appearance normal, both eyes and all related structures Neck: Neck: supple and no JVD Resp: Effort & Inspection: normal respiratory effort Auscultation: clear to auscultation bilaterally Cardio: Rate: regular rate Rhythm: regular rhythm GI: Auscultation: normal bowel sounds Neuro: Other: patient is awake and alert toxin monosyllables word has generalized weakness which has improved significantly and evidence of peripheral neuropathy he says he has worked with the therapy and walk some Extrem: General: normal to inspection Psych: Mental Status: mental status grossly normal Objective Data Vital Signs Vital Signs: Vital Signs - 24 hr 01/03/20 19:50 01/03/20 22:00 01/03/20 23:13 Temperature 37.8 C H 37.8 C H Pulse Rate 106 H Respiratory Rate 18 Blood Pressure 123/77 Pulse Oximetry 97 97 01/04/20 00:10 01/04/20 06:00 01/04/20 06:37 Temperature 37.5 C 36.4 C Pulse Rate 70 Respiratory Rate 18 Blood Pressure 91/63 L 98/64 L Pulse Oximetry 100 01/04/20 08:00 01/04/20 14:00 Temperature 36.7 C 36.7 C Pulse Rate 58 L 61 Respiratory Rate 20 16 Blood Pressure 93/69 L 97/64 L Pulse Oximetry 96 99 Intake/Output Intake/Output: Intake & Output 01/01/20 01/02/20 01/03/20 01/04/20 23:59 23:59 23:59 23:59 Intake Total 90 720 840 480 Output Total 0 300 Balance 90 420 840 480 Meds/Results Medications: Active Medications Generic Name Dose Route Start Last Admin Trade Name Freq PRN Reason Stop Dose Admin Acetaminophen 650 mg 01/01/20 09:52 01/03/20 23:13 Tylenol Tablet PO 650 mg Q6H PRN Administration Mild Pain (1-3) or Fever Amlodipine Besylate 10 mg 01/02/20 09:00 01/04/20 09:10 Norvasc PO Not Given DAILY BESS Docusate Sodium 100 mg 01/02/20 10:15 01/04/20 09:11 Colace Capsule PO 100 mg Q12HR BESS Administration Sodium Chloride 1,000 mls @ 125 mls/hr 01/04/20 07:20 01/04/20 09:11 Normal Saline Iv IV CONT 125 mls/hr .Q8H BESS Administration Promethazine HCl 12.5 mg 01/01/20 02:27 Phenergan Inj IV PUSH Q6H PRN Nausea Valacyclovir HCl 500 mg 01/02/20 09:00 01/04/20 0
--- NOTE | 2020-01-04 16:24 | PM.IMPN ---
Progress Note: A&P Assessment and Plan (1) Non-sustained ventricular tachycardia: Code(s): I47.2 - Ventricular tachycardia Status: Acute Assessment and Plan: Telemetry strip reviewed and this is more consistent with artifact than nonsustained V-tach. removed telemetry (2) Weakness: Code(s): R53.1 - Weakness Status: Acute Assessment and Plan: Etiology unclear. Sister states patient may be acting up because she will not let him drink soda continuously without at least drinking some water. CT of the brain with contrast broad differential, possible infectious No change in medications. . Start PT and OT. Continue to monitor for now and have seen by ID today (3) Essential hypertension: Code(s): I10 - Essential (primary) hypertension Status: Acute Assessment and Plan: Blood pressure well controlled. Resumed Norvasc but hold today with bp lower. Continue to monitor. (4) History of stroke with residual effects: Code(s): I69.30 - Unspecified sequelae of cerebral infarction Status: Acute Assessment and Plan: was likely contributing to his weakness. Start PT and OT. (5) HIV (human immunodeficiency virus infection): Code(s): B20 - Human immunodeficiency virus [HIV] disease Status: Acute Assessment and Plan: Stable. Resume Biktarvy. family may need to bring this in. (6) Chronic anemia: Code(s): D64.9 - Anemia, unspecified Status: Acute Assessment and Plan: Hgb low but stable in the 7-9 range for past year. [place] anemia of chronic disease.but iron studies may be Fe def . . (7) DVT prophylaxis: Code(s): Z29.9 - Encounter for prophylactic measures, unspecified Status: Acute Assessment and Plan: Lovenox on hold for possible LP Subjective Date/time seen: 01/04/20 16:24 Interval history: Date of visit 01/03 54yo male with HIV here for weakness. Patient eating okay. No CP. Feels well. No abd pain. Dr Vang Spoke with sister by phone and she stated that the patient is due for another hip injection (last one was February). Patient seen earlier in the day. . Exam Narrative: Exam Narrative: AF 100/64 60 18 99% ra Gen - NARD lying in bed Chest - CTA bilaterally, nml RR CV - RRR S1/S2, nml RR Abd - soft, NT/ND, +BS Ext - no pedal edema; Neuro - dysarthric speech. Mild left-sided weakness. Psych - normal mood and affect. Skin -Diffuse dry scaly skin with flaking. Objective Data Vital Signs Vital Signs: Vital Signs - 24 hr 01/03/20 19:50 01/03/20 22:00 01/03/20 23:13 Temperature 37.8 C H 37.8 C H Pulse Rate 106 H Respiratory Rate 18 Blood Pressure 123/77 Pulse Oximetry 97 97 01/04/20 00:10 01/04/20 06:00 01/04/20 06:37 Temperature 37.5 C 36.4 C Pulse Rate 70 Respiratory Rate 18 Blood Pressure 91/63 L 98/64 L Pulse Oximetry 100 01/04/20 08:00 01/04/20 14:00 Temperature 36.7 C 36.7 C Pulse Rate 58 L 61 Respiratory Rate 20 16 Blood Pressure 93/69 L 97/64 L Pulse Oximetry 96 99 Intake/Output Intake/Output: Intake & Output 01/01/20 01/02/20 01/03/20 01/04/20 23:59 23:59 23:59 23:59 Intake Total 90 720 840 480 Output Total 0 300 Balance 90 420 840 480 Meds/Results Medications: Active Medications Generic Name Dose Route Start Last Admin Trade Name Freq PRN Reason Stop Dose Admin Acetaminophen 650 mg 01/01/20 09:52 01/03/20 23:13 Tylenol Tablet PO 650 mg Q6H PRN Administration Mild Pain (1-3) or Fever Amlodipine Besylate 10 mg 01/02/20 09:00 01/04/20 09:10 Norvasc PO Not Given DAILY BESS Docusate Sodium 100 mg 01/02/20 10:15 01/04/20 09:11 Colace Capsule PO 100 mg Q12HR BESS Administration Sodium Chloride 1,000 mls @ 125 mls/hr 01/04/20 07:20 01/04/20 09:11 Normal Saline Iv IV CONT 125 mls/hr .Q8H BESS Administration
--- NOTE | 2020-01-04 17:00 | WPDINFPN2 ---
Progress Note: A&P Assessment and Plan (1) HIV (human immunodeficiency virus infection): Code(s): B20 - Human immunodeficiency virus [HIV] disease Status: Acute Assessment and Plan: HIV unknown stage, on Biktarvy, adherence unknown. ALARM TECHNICIAN lesions. REC Blood testing per orders. LP should be done: protein/glucose, cell counts, crypto Ag/BILL virus PCR/VDRL, Cytology, routine/fungal/afb smears and cultures. He does not remember who his outpatient MDs are. Subjective Date/time seen: 01/04/20 17:00 Objective Data Vital Signs Vital Signs: Vital Signs - 24 hr 01/03/20 19:50 01/03/20 22:00 01/03/20 23:13 Temperature 37.8 C H 37.8 C H Pulse Rate 106 H Respiratory Rate 18 Blood Pressure 123/77 Pulse Oximetry 97 97 01/04/20 00:10 01/04/20 06:00 01/04/20 06:37 Temperature 37.5 C 36.4 C Pulse Rate 70 Respiratory Rate 18 Blood Pressure 91/63 L 98/64 L Pulse Oximetry 100 01/04/20 08:00 01/04/20 14:00 Temperature 36.7 C 36.7 C Pulse Rate 58 L 61 Respiratory Rate 20 16 Blood Pressure 93/69 L 97/64 L Pulse Oximetry 96 99 Intake/Output Intake/Output: Intake & Output 01/01/20 01/02/20 01/03/20 01/04/20 23:59 23:59 23:59 23:59 Intake Total 90 720 840 480 Output Total 0 300 Balance 90 420 840 480 Meds/Results Medications: Active Medications Generic Name Dose Route Start Last Admin Trade Name Freq PRN Reason Stop Dose Admin Acetaminophen 650 mg 01/01/20 09:52 01/03/20 23:13 Tylenol Tablet PO 650 mg Q6H PRN Administration Mild Pain (1-3) or Fever Amlodipine Besylate 10 mg 01/02/20 09:00 01/04/20 09:10 Norvasc PO Not Given DAILY BESS Docusate Sodium 100 mg 01/02/20 10:15 01/04/20 09:11 Colace Capsule PO 100 mg Q12HR BESS Administration Sodium Chloride 1,000 mls @ 125 mls/hr 01/04/20 07:20 01/04/20 09:11 Normal Saline Iv IV CONT 125 mls/hr .Q8H BESS Administration Promethazine HCl 12.5 mg 01/01/20 02:27 Phenergan Inj IV PUSH Q6H PRN Nausea Valacyclovir HCl 500 mg 01/02/20 09:00 01/04/20 09:11 Valtrex PO 500 mg DAILY BESS Administration Radiology Results: ITS Impressions Chest X-Ray 01/01/20 08:45 IMPRESSION: 1. No acute cardiopulmonary abnormality. Brain MRI 01/02/20 16:08 IMPRESSION: 1. Atypically prominent nonspecific increased T2 signal in the soraya without restricted diffusion and with possible associated curvilinear enhancement on the postcontrast images. The postcontrast images are however limited by motion and the latter finding could be artifactual. Differential would include sequela of chronic small vessel ischemic disease, infectious encephalitis including HIV or secondary opportunistic infection, HIV related progressive multifocal leukoencephalopathy, malignancy such as astrocytoma or lymphoma and demyelinating disease such as multiple sclerosis. Consider contrast-enhanced head CT more definitive assessment for enhancement. 2. Chronic old lacunar infarct at the right thalamus. 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 2: No significant change to osteonecrosis of the left femoral head with articular surface collapse. Stable secondary osteoarthritis. Head CT 01/03/20 13:36 IMPRESSION: 1. Enhancing lesions in the soraya and left frontoparietal deep white matter. The differential diagnosis includes subacute infarcts, immune reconstitution inflammatory syndrome, infection, and lymphoma. 2. Moderate nonspecific cerebral white matter disease. The differential diagnosis includes chronic small vessel ischemic disease, HIV encephalopathy, and progressive multifocal leukoencephalopathy. 3. Old lacunar infarcts involving the right thalamus, bilateral basal ganglia, and anterior limb left internal capsule. Renal Ultrasound 01/04/20 09:04 IMPRESSION: 1. Normal kidneys. No hydronephrosis. Labs Labs: Laboratory R
[2020-01-04] MEDS: SODIUM CHLORIDE 0.9% IV 1,000 ML 999 ML IV CONT (17:13)
--- NOTE | 2020-01-04 22:07 | CONS_ITS ---
DATE OF CONSULTATION: 01/04/2020 REASON FOR CONSULTATION: HIV infection. HISTORY OF PRESENT ILLNESS: The patient is a 54-year-old male who cannot provide any comprehensive history. He reports to me that he has had HIV infection for about 1 year. He is unaware of the stage at the time of diagnosis and he reports being on Biktarvy daily since then. He is unaware of any followup blood testing or impression as far as clinical success or not. He did have an office visit with Dr. Frey on 04/19/2019, where he was diagnosed with HSV infection, not otherwise specified and given p.r.n. valacyclovir. The HIV was not addressed, and his present medications at that time are not listed on our computer record. At the time, he did carry a diagnosis of previous stroke. He was seen in November for medical refills, and his amlodipine was refilled at the time as well as nystatin for thrush. Biktarvy again not mentioned as an ongoing medication. He presented to this hospital on the evening of December 30 with generalized weakness. He has undergone evaluation as below, consultation requested today. He has been on no antimicrobials. ALLERGIES: NONE KNOWN. PRESENT MEDICATIONS: As noted above. No immunosuppressants. His adherence with the Biktarvy could not be elicited from the patient. HABITS: No alcohol. Half pack per day smoker. SOCIAL HISTORY: No family at the bedside. He apparently lives with his sister. FAMILY HISTORY: Not pertinent to his present illness. REVIEW OF SYSTEMS: 14-point review attempted, largely not obtainable due to memory loss and dysarthria. PAST MEDICAL HISTORY: In addition to the above, chronic anemia, osteoarthritis. PHYSICAL EXAMINATION: GENERAL: This is a middle-aged male who appears cachectic and much older than his actual age. No respiratory distress. VITAL SIGNS: T-max 37.8, 97/64, 61, 16, 99% on room air. SKIN: Poor turgor. No ulcers, no rashes. EENT: Poor dentition. No active thrush. Pupils equal, round, reactive. Gaze is conjugate. NECK: No meningismus. No masses. LUNGS: Diminished breath sounds. Clear to auscultation and percussion. CARDIAC: Regular rate and rhythm. No murmur, gallop, or rub. ABDOMEN: Soft, nontender. No organomegaly. Abdomen is scaphoid. EXTREMITIES: Muscle wasting. No clubbing, cyanosis, or edema. NEUROLOGIC: Facial droop on the right. Normal tone, but muscle strength 4/5 in all 4s. Dysarthria, disorientation. RADIOLOGY: Brain CT and brain MRI show enhancing lesions in the soraya, left frontoparietal deep white matter, nonspecific white matter disease, old lacunar infarcts. Differential diagnosis from a radiographic standpoint is as listed in the radiologist note. Chest x-ray, no active disease. Renal ultrasound, normal. LABORATORY DATA: White count 10.2 on admission, 22.7 today; hemoglobin 9.5; platelets are 475. He has mild hypokalemia. BUN 24, creatinine 3, up from 1.1. Iron is low, TIBC normal, ferritin as high as one would expect. Alkaline phosphatase 167. Urinalysis, multiple abnormalities but do not suggest infection. No microbiology is in process. ASSESSMENT: 1. Human immunodeficiency virus infection, uncertain stage at the time of diagnosis, which may have been a year ago or perhaps longer. His adherence with his Biktarvy is unknown. 2. Cachexia. 3. Central nervous system lesions, appears to be a combination of thrombotic stroke, one or more along with infectious or malignant lesions in the soraya and central white matter. Differential diagnosis from an infectious disease standpoint is extremely broad. 4. Leukocytosis, multifactorial. 5. Osteoarthritis of the hip. 6. Previous oral thrush indicative of advanced HIV infection. RECOMMENDATIONS: 1. No empiric antimic
[2020-01-05] VITALS (9 sets, daily range): BP systolic 115–158; BP diastolic 80–91; PULSE 54–68; RESP 16–20; TEMP 36.6–38.1; O2SAT 94–99
[2020-01-05] MEDS: SODIUM CHLORIDE 0.9% IV 1,000 ML 125 ML IV CONT (02:52)
[2020-01-05 06:49] LABS: Basophils Absolute Auto 0.1 K/mm3 (0.0-0.1); Basophils Percent Auto 0.4 % (0.2-1.2); Eosinophils Absolute Auto 0.5 K/mm3 (0-0.3); Eosinophils Percent Auto 2.7 % (0-4.4); Hematocrit 26.9 % (42.0-52.0); Hemoglobin 8.6 g/dL (14.0-18.0); Immature Granulocyte Percent A 0.6 % (0-0.5); Lymphocytes Absolute Auto 1.45 K/mm3 (0.9-3.2); Lymphocytes Percent Auto 8.5 % (18.3-44.2); Mean Corpuscular Hemoglobin 24.9 pg (26-34); Mean Platelet Volume 9.2 fl (7.4-10.4); Monocytes Absolute Auto 0.9 K/mm3 (0.1-0.6); Monocytes Percent Auto 5.3 % (2.6-8.5); Neutrophils Absolute Auto 14.1 K/mm3 (1.3-6.7); Neutrophils Percent Auto 82.5 % (45.5-73.1); Platelet Count Result 425 k/mm3 (150-375); Red Blood Count 3.45 M/mm3 (4.6-6.20); Red Cell Distribution Width 18.7 % (11.5-14.5); White Blood Count 17.1 K/mm3 (4.5-10.0)
[2020-01-05 07:22] LABS: Anion Gap 10 mmol/L (8-16); Blood Urea Nitrogen 13 mg/dL (9-20); Calcium 9.3 mg/dL (8.4-10.2); Carbon Dioxide 24 mmol/L (22-30); Chloride 105 mmol/L (98-107); Estimated CRCL calculation 52 ml/min; Estimated Glomerular Filt Rate > 60; Glucose 98 mg/dL (75-110); Potassium 3.5 mmol/L (3.4-5.0); Sodium 139 mmol/L (137-145)
[2020-01-05 07:34] LABS: Add Urine Microscopic? YES; Appearance Urine Clear (Clear); Bilirubin Urine Negative (Negative); Blood Urine 2+ (Negative); Color Urine Colorless (Yellow); Glucose Urine UA Negative (Negative); Ketones Urine Negative (Negative); Leukocyte Esterase Ur Negative LEU/UL (NEGATIVE); Nitrate Urine Negative (Negative); Protein Urine Negative (Negative); RBC Urine 0-2 /hpf (0-2); Urobilinogen Urine Negative mg/dL (<2.0); WBC Urine 0-3 /hpf (0-3)
[2020-01-05] MEDS: POTASSIUM CHLORIDE 20 MEQ TABLET 40 MEQ PO (08:36)
[2020-01-05] MEDS: valACYclovir HCL 500 MG TABLET PO (08:37)
[2020-01-05] MEDS: DOCUSATE SODIUM 100 MG CAPSULE PO ×2 (08:37→20:39)
[2020-01-05 09:36] LABS: Rapid Plasma Reagin Non-Reactive (NonReactive)
[2020-01-05] MEDS: SODIUM CHLORIDE 0.9% IV 1,000 ML 50 ML IV CONT (14:10)
--- NOTE | 2020-01-05 14:29 | PCOTNOTE ---
Attempted to see patient this date for skilled OT session. Patient not in room upon entry. Per RN, patient was taken for Lumbar puncture procedure and states therapy would not be recommended this date. Patient not seen for skilled OT this date.
[2020-01-05 15:29] LABS: Glucose CSF 57 mg/dL (40-70); Total Protein CSF 46 mg/dL (12-60)
[2020-01-05 15:51] LABS: Appearance CSF Clear (Clear); CSF source CSF; Color CSF Colorless (Colorless); Lymphocytes CSF 68 % (40-80); Monocytes CSF 16 % (15-45); Neutrophils CSF 16 % (0-6); Nucleated Cell CSF 31 /uL (0-5); Red Blood Cell CSF 3 (0-2)
--- NOTE | 2020-01-05 16:08 | PM.IMPN ---
Progress Note: A&P Assessment and Plan (1) Non-sustained ventricular tachycardia: Code(s): I47.2 - Ventricular tachycardia Status: Acute Assessment and Plan: Telemetry strip reviewed and this is more consistent with artifact than nonsustained V-tach. removed telemetry (2) Weakness: Code(s): R53.1 - Weakness Status: Acute Assessment and Plan: Etiology unclear. Sister states patient may be acting up because she will not let him drink soda continuously without at least drinking some water. CT of the brain with contrast broad differential, possible infectious No change in medications. . Start PT and OT. LP today and analysis pending Creatinine up yesterday but down today after hydration (3) Essential hypertension: Code(s): I10 - Essential (primary) hypertension Status: Acute Assessment and Plan: Blood pressure well controlled. Resumed Norvasc . Continue to monitor. (4) History of stroke with residual effects: Code(s): I69.30 - Unspecified sequelae of cerebral infarction Status: Acute Assessment and Plan: was likely contributing to his weakness. Start PT and OT. (5) HIV (human immunodeficiency virus infection): Code(s): B20 - Human immunodeficiency virus [HIV] disease Status: Acute Assessment and Plan: Stable. Resume Biktarvy. family may need to bring this in. CD4 count sent (6) Chronic anemia: Code(s): D64.9 - Anemia, unspecified Status: Acute Assessment and Plan: Hgb low but stable in the 7-9 range for past year. [place] anemia of chronic disease.but iron studies may be Fe def . 8.6 today . (7) DVT prophylaxis: Code(s): Z29.9 - Encounter for prophylactic measures, unspecified Status: Acute Assessment and Plan: Lovenox on hold for LP today and can resume 01/05 Subjective Date/time seen: 01/05/20 16:08 Interval history: Date of visit 01/04 54yo male with HIV here for weakness. Patient eating okay. No CP. Feels well. No abd pain. Dr Vang Spoke with sister by phone and she stated that the patient is due for another hip injection (last one was February). . Exam Narrative: Exam Narrative: AF 146/86 60 18 97% ra Gen - NARD sitting in chair Chest - clear CV - RRR S1/S2, nml RR Abd - soft, NT/ND, +BS Ext - no pedal edema; Neuro - dysarthric speech. Mild left-sided weakness. Psych - normal mood and affect. Skin -Diffuse dry scaly skin with flaking. Objective Data Vital Signs Vital Signs: Vital Signs - 24 hr 01/04/20 20:00 01/04/20 22:00 01/05/20 06:00 Temperature 37.1 C 36.9 C Pulse Rate 61 53 L 54 L Respiratory Rate 16 16 16 Blood Pressure 125/85 145/81 H Pulse Oximetry 99 99 99 01/05/20 14:00 01/05/20 14:26 01/05/20 14:55 Temperature 36.6 C Pulse Rate 68 56 L 57 L Respiratory Rate 18 20 20 Blood Pressure 115/81 127/80 147/91 H Pulse Oximetry 95 94 97 Intake/Output Intake/Output: Intake & Output 01/02/20 01/03/20 01/04/20 01/05/20 23:59 23:59 23:59 23:59 Intake Total 726 300 9742 2680 Output Total 300 Balance 687 647 6356 2680 Meds/Results Medications: Active Medications Generic Name Dose Route Start Last Admin Trade Name Freq PRN Reason Stop Dose Admin Acetaminophen 650 mg 01/01/20 09:52 01/03/20 23:13 Tylenol Tablet PO 650 mg Q6H PRN Administration Mild Pain (1-3) or Fever Amlodipine Besylate 10 mg 01/02/20 09:00 01/04/20 09:10 Norvasc PO Not Given DAILY BESS Docusate Sodium 100 mg 01/02/20 10:15 01/05/20 08:37 Colace Capsule PO 100 mg Q12HR BESS Administration Sodium Chloride 1,000 mls @ 50 mls/hr 01/04/20 07:20 01/05/20 14:10 Normal Saline Iv IV CONT 50 mls/hr .Q20H BESS Administration Promethazine HCl 12.5 mg 01/01/20 02:27 Phenergan Inj IV PUSH Q6H PRN Nausea Valacyclovir HCl 500 mg 0
[2020-01-05] MEDS: amLODIPine BESYLATE 5 MG TABLET PO (17:28)
[2020-01-05] MEDS: ACETAMINOPHEN 325 MG TABLET 650 MG PO (20:45)
[2020-01-06 02:00] VITALS: BP 129/81; PULSE 61; RESP 16; TEMP 36.8; O2SAT 96
[2020-01-06 06:00] VITALS: BP 122/80; PULSE 58; RESP 20; TEMP 36.6; O2SAT 97
[2020-01-06 07:13] LABS: Anion Gap 10 mmol/L (8-16); Blood Urea Nitrogen 9 mg/dL (9-20); Calcium 9.7 mg/dL (8.4-10.2); Carbon Dioxide 23 mmol/L (22-30); Chloride 105 mmol/L (98-107); Estimated CRCL calculation 71 ml/min; Estimated Glomerular Filt Rate > 60; Glucose 99 mg/dL (75-110); Potassium 3.3 mmol/L (3.4-5.0); Sodium 138 mmol/L (137-145)
[2020-01-06] MEDS: amLODIPine BESYLATE 5 MG TABLET PO (08:34)
[2020-01-06] MEDS: DOCUSATE SODIUM 100 MG CAPSULE PO ×2 (08:34→22:21)
[2020-01-06] MEDS: valACYclovir HCL 500 MG TABLET PO (08:35)
--- NOTE | 2020-01-06 11:19 | PCNFU ---
Nutrition Follow-Up Complete: Underweight as related to HIV/weakness as evidenced by BMI: 17.6 Goal: Adequate Intake of at least 75% of meals/supplements Progressing towards goal,We will continue current goal. Pt current nutrition is Easy to Chew, Level 7/Heart Healthy. Nutrition recommendation: Agree Last recorded weight is 55.3 kg up from 52.4 kg on admit. Bowel Motility:No BM reported, started on Colace today. Labs Reviewed:K 3.3 Meds Noted:Colace, Norvasc Additional Notes: Nutrition follow up today. Oral Intake reporting 25-75% of meals. Patient is also receiving Ensure Enlive BID providing an additional 350 kcals and 20 gms protein. PO intake continues to be encouraged. Monitoring: RD will monitor every 5 days.
[2020-01-06 14:00] VITALS: BP 129/75; PULSE 60; RESP 16; TEMP 36.3; O2SAT 100
--- NOTE | 2020-01-06 17:01 | PM.IMPN ---
Progress Note: A&P Assessment and Plan (1) Non-sustained ventricular tachycardia: Code(s): I47.2 - Ventricular tachycardia Status: Acute Assessment and Plan: Telemetry strip reviewed and this is more consistent with artifact than nonsustained V-tach. removed telemetry (2) Weakness: Code(s): R53.1 - Weakness Status: Acute Assessment and Plan: Etiology unclear. Sister states patient may be acting up because she will not let him drink soda continuously without at least drinking some water. CT of the brain with contrast broad differential, possible infectious No change in medications. . Start PT and OT. LP 01/04 various studies pending , Kim culcure neg so far Creatinine up 01/03 but down since after hydration (3) Essential hypertension: Code(s): I10 - Essential (primary) hypertension Status: Acute Assessment and Plan: Blood pressure well controlled. Resumed Norvasc at 5 mg qd . Continue to monitor. (4) History of stroke with residual effects: Code(s): I69.30 - Unspecified sequelae of cerebral infarction Status: Acute Assessment and Plan: was likely contributing to his weakness. Start PT and OT. (5) HIV (human immunodeficiency virus infection): Code(s): B20 - Human immunodeficiency virus [HIV] disease Status: Acute Assessment and Plan: Stable. Resume Biktarvy. family may need to bring this in. CD4 count sent (6) Chronic anemia: Code(s): D64.9 - Anemia, unspecified Status: Acute Assessment and Plan: Hgb low but stable in the 7-9 range for past year. [place] anemia of chronic disease.but iron studies may be Fe def . 8.6 01/04 and repeat am . (7) DVT prophylaxis: Code(s): Z29.9 - Encounter for prophylactic measures, unspecified Status: Acute Assessment and Plan: Lovenox on hold for LP today and can resume now Subjective Date/time seen: 01/06/20 17:01 Interval history: Date of visit 01/05 54yo male with HIV here for weakness. Patient eating okay. No CP. Feels well. No abd pain. Alert and no specific complaints . Exam Narrative: Exam Narrative: AF 128/74 60 18 97% ra Gen - NARD sitting in chair Chest - clear CV - RRR S1/S2, nml RR Abd - soft, NT/ND, +BS Ext - no pedal edema; Neuro - dysarthric speech. Mild left-sided weakness. Psych - normal mood and affect. Skin -Diffuse dry scaly skin with flaking. Objective Data Vital Signs Vital Signs: Vital Signs - 24 hr 01/05/20 20:00 01/05/20 20:45 01/05/20 21:42 Temperature 38.1 C H 38.1 C H Pulse Rate 67 67 Respiratory Rate 16 16 Blood Pressure 158/85 H Pulse Oximetry 99 99 01/05/20 22:18 01/05/20 22:20 01/06/20 02:00 Temperature 37.9 C H 37.9 C H 36.8 C Pulse Rate 64 61 Respiratory Rate 16 16 Blood Pressure 125/80 129/81 Pulse Oximetry 98 96 01/06/20 06:00 01/06/20 14:00 Temperature 36.6 C 36.3 C L Pulse Rate 58 L 60 Respiratory Rate 20 16 Blood Pressure 122/80 129/75 Pulse Oximetry 97 100 Intake/Output Intake/Output: Intake & Output 01/03/20 01/04/20 01/05/20 01/06/20 23:59 23:59 23:59 23:59 Intake Total 840 2900 3220 1470 Output Total 300 Balance 840 2900 3220 1170 Meds/Results Medications: Active Medications Generic Name Dose Route Start Last Admin Trade Name Freq PRN Reason Stop Dose Admin Acetaminophen 650 mg 01/01/20 09:52 01/05/20 20:45 Tylenol Tablet PO 650 mg Q6H PRN Administration Mild Pain (1-3) or Fever Amlodipine Besylate 10 mg 01/02/20 09:00 01/04/20 09:10 Norvasc PO Not Given DAILY BESS Amlodipine Besylate 5 mg 01/06/20 09:00 01/06/20 08:34 Norvasc PO 5 mg QAM BESS Administration Docusate Sodium 100 mg 01/02/20 10:15 01/06/20 08:34 Colace Capsule PO 100 mg Q12HR BESS Administration Promethazine HCl 12.5 mg 01/01/20 02:27 Phenergan In
--- NOTE | 2020-01-06 18:29 | WPDINFPN2 ---
Progress Note: A&P Additional Plan 1. History of HIV with unknown CD4 count and viral load. Patient is currently on highly active anti-retroviral therapy. Biktarvy. continue current care. 2. Mild change in mental status with flat affect and abnormal MRI. Workup in progress. Lumbar puncture was abnormal with mild pleocytosis of 31 with lymphocytic and monocytic predominance. Differential diagnosis include BILL virus versus HIV associated encephalitis versus parenchyma to syphilis. Lumbar puncture has been done and results are pending. Patient is clinically stable. No signs of Nocardia rigidity or photophobia. 3. Flat affect with signs of dementia suspect 8 complex dementia in the differential diagnosis. Subjective Date/time seen: 01/06/20 18:29 Exam HENMT: Other: No oral thrush. Neck: Other: Neck is supple no lymphadenopathy. No nuchal rigidity. Resp: Other: Good bilateral air entry null around the waist. Cardio: Other: Positive S1 and positive S2. GI: Other: Positive bowel sound nontender. No organomegaly. Skin: Other: No rash. Neuro: Other: Flat affect. No acute focal deficit. Extrem: Other: No edema. Objective Data Vital Signs Vital Signs: Vital Signs - 24 hr 01/05/20 20:00 01/05/20 20:45 01/05/20 21:42 Temperature 38.1 C H 38.1 C H Pulse Rate 67 67 Respiratory Rate 16 16 Blood Pressure 158/85 H Pulse Oximetry 99 99 01/05/20 22:18 01/05/20 22:20 01/06/20 02:00 Temperature 37.9 C H 37.9 C H 36.8 C Pulse Rate 64 61 Respiratory Rate 16 16 Blood Pressure 125/80 129/81 Pulse Oximetry 98 96 01/06/20 06:00 01/06/20 14:00 Temperature 36.6 C 36.3 C L Pulse Rate 58 L 60 Respiratory Rate 20 16 Blood Pressure 122/80 129/75 Pulse Oximetry 97 100 Intake/Output Intake/Output: Intake & Output 01/03/20 01/04/20 01/05/20 01/06/20 23:59 23:59 23:59 23:59 Intake Total 840 2900 3220 2020 Output Total 550 Balance 840 2900 3220 1470 Meds/Results Medications: Active Medications Generic Name Dose Route Start Last Admin Trade Name Freq PRN Reason Stop Dose Admin Acetaminophen 650 mg 01/01/20 09:52 01/05/20 20:45 Tylenol Tablet PO 650 mg Q6H PRN Administration Mild Pain (1-3) or Fever Amlodipine Besylate 10 mg 01/02/20 09:00 01/04/20 09:10 Norvasc PO Not Given DAILY [facility] Amlodipine Besylate 5 mg 01/06/20 09:00 01/06/20 08:34 Norvasc PO 5 mg QAM BESS Administration Docusate Sodium 100 mg 01/02/20 10:15 01/06/20 08:34 Colace Capsule PO 100 mg Q12HR BESS Administration Enoxaparin Sodium 40 mg 01/07/20 09:00 Lovenox SUB-Q DAILY BESS Promethazine HCl 12.5 mg 01/01/20 02:27 Phenergan Inj IV PUSH Q6H PRN Nausea Valacyclovir HCl 500 mg 01/02/20 09:00 01/06/20 08:35 Valtrex PO 500 mg DAILY BESS Administration Radiology Results: ITS Impressions Brain MRI 01/02/20 16:08 IMPRESSION: 1. Atypically prominent nonspecific increased T2 signal in the soraya without restricted diffusion and with possible associated curvilinear enhancement on the postcontrast images. The postcontrast images are however limited by motion and the latter finding could be artifactual. Differential would include sequela of chronic small vessel ischemic disease, infectious encephalitis including HIV or secondary opportunistic infection, HIV related progressive multifocal leukoencephalopathy, malignancy such as astrocytoma or lymphoma and demyelinating disease such as multiple sclerosis. Consider contrast-enhanced head CT more definitive assessment for enhancement. 2. Chronic old lacunar infarct at the right thalamus. 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 2: No significant change to osteonecrosis of the left femoral head with articular surface collapse. Stable secondary osteoarthritis. Head CT 01/03/20 13:36 IMPRESSION: 1. Enhancing lesion
[2020-01-06 22:00] VITALS: BP 155/85; PULSE 62; RESP 16; TEMP 36.7; O2SAT 98
[2020-01-07 06:00] VITALS: BP 141/85; PULSE 55; RESP 18; TEMP 36.5; O2SAT 99
[2020-01-07 06:51] LABS: Basophils Absolute Auto 0.1 K/mm3 (0.0-0.1); Basophils Percent Auto 0.5 % (0.2-1.2); Eosinophils Absolute Auto 0.5 K/mm3 (0-0.3); Eosinophils Percent Auto 4.2 % (0-4.4); Hematocrit 26.4 % (42.0-52.0); Hemoglobin 8.5 g/dL (14.0-18.0); Immature Granulocyte Absolute 0.08 K/mm3 (0.00-0.031); Immature Granulocyte Percent A 0.7 % (0-0.5); Lymphocytes Absolute Auto 1.46 K/mm3 (0.9-3.2); Lymphocytes Percent Auto 13.1 % (18.3-44.2); Mean Corpuscular HGB Conc 32.2 g/dl (32-36); Mean Corpuscular Hemoglobin 24.9 pg (26-34); Mean Corpuscular Volume 77.4 fl (80-100); Mean Platelet Volume 9.5 fl (7.4-10.4); Monocytes Absolute Auto 0.6 K/mm3 (0.1-0.6); Monocytes Percent Auto 4.9 % (2.6-8.5); Neutrophils Absolute Auto 8.5 K/mm3 (1.3-6.7); Neutrophils Percent Auto 76.6 % (45.5-73.1); Platelet Count Result 497 k/mm3 (150-375); Red Blood Count 3.41 M/mm3 (4.6-6.20); Red Cell Distribution Width 18.3 % (11.5-14.5); White Blood Count 11.1 K/mm3 (4.5-10.0)
[2020-01-07 06:57] LABS: Anion Gap 11 mmol/L (8-16); Blood Urea Nitrogen 14 mg/dL (9-20); Calcium 10.1 mg/dL (8.4-10.2); Carbon Dioxide 26 mmol/L (22-30); Chloride 101 mmol/L (98-107); Estimated CRCL calculation 64 ml/min; Estimated Glomerular Filt Rate > 60; Glucose 105 mg/dL (75-110); Potassium 3.4 mmol/L (3.4-5.0); Sodium 138 mmol/L (137-145)
[2020-01-07] MEDS: DOCUSATE SODIUM 100 MG CAPSULE PO ×2 (08:29→21:30)
[2020-01-07] MEDS: ENOXAPARIN 40 MG/0.4 ML SYRINGE SUB-Q (08:29)
[2020-01-07] MEDS: amLODIPine BESYLATE 5 MG TABLET PO (08:30)
[2020-01-07] MEDS: valACYclovir HCL 500 MG TABLET PO (08:30)
[2020-01-07 14:44] VITALS: BP 135/90; PULSE 67; RESP 16; TEMP 36.7; O2SAT 100
[2020-01-07 15:36] LABS: Cryptococcus Antigen Not Detected (Not Detected); Cryptococcus Specimen Source CSF
--- NOTE | 2020-01-07 16:01 | PM.IMPN ---
Progress Note: A&P Assessment and Plan (1) Non-sustained ventricular tachycardia: Code(s): I47.2 - Ventricular tachycardia Status: Acute Assessment and Plan: Telemetry strip reviewed and this is more consistent with artifact than nonsustained V-tach. removed telemetry (2) Weakness: Code(s): R53.1 - Weakness Status: Acute Assessment and Plan: Etiology unclear. Sister states patient may be acting up because she will not let him drink soda continuously without at least drinking some water. CT of the brain with contrast broad differential, possible infectious No change in medications. . Start PT and OT. LP 01/04 various studies pending, cryptococcal neg. , BC culcure neg so far Creatinine up 01/03 but down since after hydration, 0.9 today (3) Essential hypertension: Code(s): I10 - Essential (primary) hypertension Status: Acute Assessment and Plan: Blood pressure well controlled. Resumed Norvasc at 5 mg qd 01/05 . Continue to monitor. (4) History of stroke with residual effects: Code(s): I69.30 - Unspecified sequelae of cerebral infarction Status: Acute Assessment and Plan: was likely contributing to his weakness. Start PT and OT. (5) HIV (human immunodeficiency virus infection): Code(s): B20 - Human immunodeficiency virus [HIV] disease Status: Acute Assessment and Plan: Stable. Resume Biktarvy. family may need to bring this in. CD4 count and viral load pending (6) Chronic anemia: Code(s): D64.9 - Anemia, unspecified Status: Acute Assessment and Plan: Hgb low but stable in the 7-9 range for past year. [place] anemia of chronic disease.but iron studies may be Fe def . 8.5 today. (7) DVT prophylaxis: Code(s): Z29.9 - Encounter for prophylactic measures, unspecified Status: Acute Assessment and Plan: Lovenox Subjective Date/time seen: 01/07/20 16:01 Interval history: Date of visit 01/06 54yo male with HIV here for weakness. Patient eating okay. No CP. Feels well. No abd pain. Alert and no specific complaints . Exam Narrative: Exam Narrative: AF 134/90 66 18 100 % ra Gen - NARD sitting in chair Chest - clear CV - RRR S1/S2, nml RR Abd - soft, NT/ND, +BS Ext - no pedal edema; Neuro - dysarthric speech. Mild left-sided weakness. Psych - normal mood and affect. Skin -Diffuse dry scaly skin with flaking. Objective Data Vital Signs Vital Signs: Vital Signs - 24 hr 01/06/20 22:00 01/07/20 06:00 01/07/20 14:44 Temperature 36.7 C 36.5 C 36.7 C Pulse Rate 62 55 L 67 Respiratory Rate 16 18 16 Blood Pressure 155/85 H 141/85 H 135/90 Pulse Oximetry 98 99 100 Intake/Output Intake/Output: Intake & Output 01/04/20 01/05/20 01/06/20 01/07/20 23:59 23:59 23:59 23:59 Intake Total 2900 3220 2320 90 Output Total 550 Balance 2900 3220 1770 90 Meds/Results Medications: Active Medications Generic Name Dose Route Start Last Admin Trade Name Freq PRN Reason Stop Dose Admin Acetaminophen 650 mg 01/01/20 09:52 01/05/20 20:45 Tylenol Tablet PO 650 mg Q6H PRN Administration Mild Pain (1-3) or Fever Amlodipine Besylate 10 mg 01/02/20 09:00 01/04/20 09:10 Norvasc PO Not Given DAILY [facility] Amlodipine Besylate 5 mg 01/06/20 09:00 01/07/20 08:30 Norvasc PO 5 mg QAM BESS Administration Docusate Sodium 100 mg 01/02/20 10:15 01/07/20 08:29 Colace Capsule PO 100 mg Q12HR BESS Administration Enoxaparin Sodium 40 mg 01/07/20 09:00 01/07/20 08:29 Lovenox SUB-Q 40 mg DAILY BESS Administration Promethazine HCl 12.5 mg 01/01/20 02:27 Phenergan Inj IV PUSH Q6H PRN Nausea Valacyclovir HCl 500 mg 01/02/20 09:00 01/07/20 08:30 Valtrex PO 500 mg DAILY BESS Administration Radiology Results: ITS Impressions Brain MRI
[2020-01-07 16:32] LABS: HIV 1 RNA PCR <1.30 Log cps/mL; HIV 1 RNA PCR <20 Copies/mL
[2020-01-07] MEDS: POTASSIUM CHLORIDE 20 MEQ TABLET 40 MEQ PO (17:13)
[2020-01-07 17:55] LABS: VDRL Quantitative CSF Nonreactive (Nonreactive)
[2020-01-07 22:00] VITALS: BP 155/90; PULSE 58; RESP 18; TEMP 37; O2SAT 99
[2020-01-08 06:00] VITALS: BP 137/85; PULSE 60; RESP 20; TEMP 37; O2SAT 97
[2020-01-08 07:03] LABS: Basophils Absolute Auto 0.1 K/mm3 (0.0-0.1); Basophils Percent Auto 0.4 % (0.2-1.2); Eosinophils Absolute Auto 0.4 K/mm3 (0-0.3); Eosinophils Percent Auto 3.7 % (0-4.4); Hematocrit 27.7 % (42.0-52.0); Hemoglobin 8.8 g/dL (14.0-18.0); Immature Granulocyte Absolute 0.09 K/mm3 (0.00-0.031); Immature Granulocyte Percent A 0.8 % (0-0.5); Lymphocytes Absolute Auto 1.46 K/mm3 (0.9-3.2); Lymphocytes Percent Auto 12.6 % (18.3-44.2); Mean Corpuscular HGB Conc 31.8 g/dl (32-36); Mean Corpuscular Hemoglobin 24.6 pg (26-34); Mean Corpuscular Volume 77.6 fl (80-100); Mean Platelet Volume 9.3 fl (7.4-10.4); Monocytes Absolute Auto 0.7 K/mm3 (0.1-0.6); Monocytes Percent Auto 6.4 % (2.6-8.5); Neutrophils Absolute Auto 8.9 K/mm3 (1.3-6.7); Neutrophils Percent Auto 76.1 % (45.5-73.1); Platelet Count Result 498 k/mm3 (150-375); Red Blood Count 3.57 M/mm3 (4.6-6.20); White Blood Count 11.6 K/mm3 (4.5-10.0)
[2020-01-08 07:41] LABS: Anion Gap 10 mmol/L (8-16); Blood Urea Nitrogen 16 mg/dL (9-20); Calcium 10.1 mg/dL (8.4-10.2); Carbon Dioxide 28 mmol/L (22-30); Chloride 98 mmol/L (98-107); Estimated CRCL calculation 64 ml/min; Estimated Glomerular Filt Rate > 60; Glucose 90 mg/dL (75-110); Potassium 3.9 mmol/L (3.4-5.0); Sodium 136 mmol/L (137-145)
[2020-01-08] MEDS: ENOXAPARIN 40 MG/0.4 ML SYRINGE SUB-Q (09:11)
[2020-01-08] MEDS: DOCUSATE SODIUM 100 MG CAPSULE PO ×2 (09:11→20:46)
[2020-01-08] MEDS: valACYclovir HCL 500 MG TABLET PO (09:11)
[2020-01-08] MEDS: amLODIPine BESYLATE 5 MG TABLET PO (09:12)
--- NOTE | 2020-01-08 11:34 | PCOTNOTE ---
Practitioner attempted multiple times to complete therapy session with the patient, but patient declined to participate in therapy this date 01/08/2020.
[2020-01-08 14:00] VITALS: BP 134/85; PULSE 77; RESP 16; TEMP 36.9; O2SAT 97
--- NOTE | 2020-01-08 17:30 | PM.IMPN ---
Progress Note: A&P Assessment and Plan (1) Non-sustained ventricular tachycardia: Code(s): I47.2 - Ventricular tachycardia Status: Acute Assessment and Plan: Telemetry strip reviewed and this is more consistent with artifact than nonsustained V-tach. removed telemetry (2) Weakness: Code(s): R53.1 - Weakness Status: Acute Assessment and Plan: Etiology unclear. Sister states patient may be acting up because she will not let him drink soda continuously without at least drinking some water. CT of the brain with contrast broad differential, possible infectious No change in medications. . Start PT and OT. LP 01/04 , cryptococcal neg, VDRL non reactive, protein and glucose normal. smears fungal and bacterial neg and no growth bacterially , BC culcure neg so far Creatinine up 01/03 but down after hydration, 0.9 today (3) Essential hypertension: Code(s): I10 - Essential (primary) hypertension Status: Acute Assessment and Plan: Blood pressure well controlled. Resumed Norvasc at 5 mg qd 01/05 . Continue to monitor. (4) History of stroke with residual effects: Code(s): I69.30 - Unspecified sequelae of cerebral infarction Status: Acute Assessment and Plan: was likely contributing to his weakness. Started PT and OT. (5) HIV (human immunodeficiency virus infection): Code(s): B20 - Human immunodeficiency virus [HIV] disease Status: Acute Assessment and Plan: Stable. Resume Biktarvy. family may need to bring this in. CD4 count and viral load low less than 15 (6) Chronic anemia: Code(s): D64.9 - Anemia, unspecified Status: Acute Assessment and Plan: Hgb low but stable in the 7-9 range for past year. [place] anemia of chronic disease.but iron studies may be Fe def . 8.8 today. (7) DVT prophylaxis: Code(s): Z29.9 - Encounter for prophylactic measures, unspecified Status: Acute Assessment and Plan: Lovenox Subjective Date/time seen: 01/08/20 17:30 Interval history: Date of visit 01/07 54yo male with HIV here for weakness. Patient eating okay. No CP. Feels well. No abd pain. Alert and no specific complaints . Exam Narrative: Exam Narrative: AF 134/84 76 18 100 % ra Gen - NARD sitting in chair Chest - clear CV - RRR S1/S2, nml RR Abd - soft, NT/ND, +BS Ext - no pedal edema; Neuro - dysarthric speech. Mild left-sided weakness. Psych - normal mood and affect. Skin -Diffuse dry scaly skin with flaking. Objective Data Vital Signs Vital Signs: Vital Signs - 24 hr 01/07/20 22:00 01/08/20 06:00 01/08/20 14:00 Temperature 37.0 C 37.0 C 36.9 C Pulse Rate 58 L 60 77 Respiratory Rate 18 20 16 Blood Pressure 155/90 H 137/85 134/85 Pulse Oximetry 99 97 97 Intake/Output Intake/Output: Intake & Output 01/05/20 01/06/20 01/07/20 01/08/20 23:59 23:59 23:59 23:59 Intake Total 3220 2320 830 750 Output Total 550 Balance 3220 1770 830 750 Meds/Results Medications: Active Medications Generic Name Dose Route Start Last Admin Trade Name Freq PRN Reason Stop Dose Admin Acetaminophen 650 mg 01/01/20 09:52 01/05/20 20:45 Tylenol Tablet PO 650 mg Q6H PRN Administration Mild Pain (1-3) or Fever Amlodipine Besylate 10 mg 01/02/20 09:00 01/04/20 09:10 Norvasc PO Not Given DAILY [facility] Amlodipine Besylate 5 mg 01/06/20 09:00 01/08/20 09:12 Norvasc PO 5 mg QAM BESS Administration Docusate Sodium 100 mg 01/02/20 10:15 01/08/20 09:11 Colace Capsule PO 100 mg Q12HR BESS Administration Enoxaparin Sodium 40 mg 01/07/20 09:00 01/08/20 09:11 Lovenox SUB-Q 40 mg DAILY BESS Administration Promethazine HCl 12.5 mg 01/01/20 02:27 Phenergan Inj IV PUSH Q6H PRN Nausea Valacyclovir HCl 500 mg 01/02/20 09:00 01/08/20 09:11 Valtrex PO 500 mg DAILY
[2020-01-08 19:19] LABS: Toxoplasma IgM Antibody <8.00 AU/mL (<8.00)
[2020-01-08 19:38] LABS: Toxoplasma IgG Antibody <7.20 IU/mL (<7.20)
[2020-01-08] MEDS: NYSTATIN 100,000 UNITS/ML SUSP 5 ML ORAL.SUSP PO (20:46)
[2020-01-08 22:00] VITALS: BP 147/88; PULSE 74; RESP 16; TEMP 36.6; O2SAT 92
[2020-01-09] MEDS: amLODIPine BESYLATE 5 MG TABLET PO (08:06)
[2020-01-09] MEDS: DOCUSATE SODIUM 100 MG CAPSULE PO ×2 (08:07→21:56)
[2020-01-09] MEDS: ENOXAPARIN 40 MG/0.4 ML SYRINGE SUB-Q (08:07)
[2020-01-09] MEDS: NYSTATIN 100,000 UNITS/ML SUSP 5 ML ORAL.SUSP PO ×4 (08:08→21:56)
[2020-01-09] MEDS: valACYclovir HCL 500 MG TABLET PO (08:08)
--- NOTE | 2020-01-09 11:45 | PCPTNOTE ---
Patient refused treatment this session.
--- NOTE | 2020-01-09 12:49 | WPDINFPN2 ---
Progress Note: A&P Assessment and Plan (1) HIV (human immunodeficiency virus infection): Code(s): B20 - Human immunodeficiency virus [HIV] disease Status: Acute Assessment and Plan: 1. HIV unknown stage at time of Dx. on Biktarvy with excellent viral suppression 2. [employer]AR[employer]ER lesions, thrombotic stroke? Has mild CSF pleocytosis as well. REC Continue Biktarvy. Await BILL virus PCR from spinal fluid (for PML). Also await cytology. No other antimicrobials. If his evaluation is non diagnostic, I would be interested in Dr. Sears's opinion about brain biopsy. Subjective Date/time seen: 01/09/20 12:49 Interval history: slurred speech Exam Narrative: Exam Narrative: afebrile Const: General: no acute distress Eyes: General: appearance normal, both eyes and all related structures Resp: Effort & Inspection: normal respiratory effort Auscultation: clear to auscultation bilaterally Cardio: Rate: regular rate Rhythm: regular rhythm Heart sounds: no murmurs GI: Inspection: non-distended GI Palp: Yes Soft to palpation and No Tenderness to palpation present (GI) Skin: General skin exam: normal color and no rashes or lesions noted Neuro: Motor exam (neuro): Abnormal motor strength present Other: LUE 4/5. RUE 5/5 Objective Data Vital Signs Vital Signs: Vital Signs - 24 hr 01/08/20 14:00 01/08/20 22:00 Temperature 36.9 C 36.6 C Pulse Rate 77 74 Respiratory Rate 16 16 Blood Pressure 134/85 147/88 H Pulse Oximetry 97 92 Intake/Output Intake/Output: Intake & Output 01/06/20 01/07/20 01/08/20 01/09/20 23:59 23:59 23:59 23:59 Intake Total 2320 830 1000 50 Output Total 550 Balance 8627 386 1593 50 Meds/Results Medications: Active Medications Generic Name Dose Route Start Last Admin Trade Name Freq PRN Reason Stop Dose Admin Acetaminophen 650 mg 01/01/20 09:52 01/05/20 20:45 Tylenol Tablet PO 650 mg Q6H PRN Administration Mild Pain (1-3) or Fever Amlodipine Besylate 10 mg 01/02/20 09:00 01/04/20 09:10 Norvasc PO Not Given DAILY BESS Amlodipine Besylate 5 mg 01/06/20 09:00 01/09/20 08:06 Norvasc PO 5 mg QAM BESS Administration Docusate Sodium 100 mg 01/02/20 10:15 01/09/20 08:07 Colace Capsule PO 100 mg Q12HR BESS Administration Enoxaparin Sodium 40 mg 01/07/20 09:00 01/09/20 08:07 Lovenox SUB-Q 40 mg DAILY BESS Administration Nystatin 5 ml 01/08/20 21:00 01/09/20 08:08 Nystatin 100,000 Units/Ml Susp PO 5 ml QID BESS Administration Promethazine HCl 12.5 mg 01/01/20 02:27 Phenergan Inj IV PUSH Q6H PRN Nausea Valacyclovir HCl 500 mg 01/02/20 09:00 01/09/20 08:08 Valtrex PO 500 mg DAILY BESS Administration Radiology Results: ITS Impressions Brain MRI 01/02/20 16:08 IMPRESSION: 1. Atypically prominent nonspecific increased T2 signal in the soraya without restricted diffusion and with possible associated curvilinear enhancement on the postcontrast images. The postcontrast images are however limited by motion and the latter finding could be artifactual. Differential would include sequela of chronic small vessel ischemic disease, infectious encephalitis including HIV or secondary opportunistic infection, HIV related progressive multifocal leukoencephalopathy, malignancy such as astrocytoma or lymphoma and demyelinating disease such as multiple sclerosis. Consider contrast-enhanced head CT more definitive assessment for enhancement. 2. Chronic old lacunar infarct at the right thalamus. 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 2: No significant change to osteonecrosis of the left femoral head with articular surface collapse. Stable secondary osteoarthritis. Head CT 01/03/20 13:36 IMPRESSION: 1. Enhancing lesions in the soraya and left frontoparietal deep white matter. The differential diagnosis includes subacute infarcts, immune reconstitutio
[2020-01-09 14:00] VITALS: BP 120/86; PULSE 92; RESP 20; TEMP 37.1; O2SAT 93
[2020-01-09 21:56] VITALS: TEMP 38.1
[2020-01-09] MEDS: ACETAMINOPHEN 325 MG TABLET 650 MG PO (21:56)
[2020-01-09 22:00] VITALS: BP 129/98; BP 131/86; BP 155/93; PULSE 108; PULSE 117; PULSE 86; RESP 16; TEMP 38.1; O2SAT 92; O2SAT 93; O2SAT 97
--- NOTE | 2020-01-09 22:13 | PM.IMPN ---
Progress Note: A&P Assessment and Plan (1) Non-sustained ventricular tachycardia: Code(s): I47.2 - Ventricular tachycardia Status: Acute Assessment and Plan: Telemetry strip reviewed and this is more consistent with artifact than nonsustained V-tach. removed telemetry (2) Weakness: Code(s): R53.1 - Weakness Status: Acute Assessment and Plan: Etiology unclear. Sister states patient may be acting up because she will not let him drink soda continuously without at least drinking some water. CT of the brain with contrast broad differential, possible infectious No change in medications. . Start PT and OT. LP 01/04 , cryptococcal neg, VDRL non reactive, protein and glucose normal. smears fungal and bacterial neg and no growth bacterially adn cytology negative , BC culcure neg so far Creatinine up 01/03 but down after hydration, (3) Essential hypertension: Code(s): I10 - Essential (primary) hypertension Status: Acute Assessment and Plan: Blood pressure well controlled. Resumed Norvasc at 5 mg qd 01/05 . Continue to monitor. (4) History of stroke with residual effects: Code(s): I69.30 - Unspecified sequelae of cerebral infarction Status: Acute Assessment and Plan: was likely contributing to his weakness. Started PT and OT. (5) HIV (human immunodeficiency virus infection): Code(s): B20 - Human immunodeficiency virus [HIV] disease Status: Acute Assessment and Plan: Stable. Resume Biktarvy. family may need to bring this in. CD4 count still pending but viral load low less than 15 (6) Chronic anemia: Code(s): D64.9 - Anemia, unspecified Status: Acute Assessment and Plan: Hgb low but stable in the 7-9 range for past year. [place] anemia of chronic disease.but iron studies may be Fe def . (7) DVT prophylaxis: Code(s): Z29.9 - Encounter for prophylactic measures, unspecified Status: Acute Assessment and Plan: Lovenox Subjective Date/time seen: 01/09/20 22:13 Interval history: Date of visit 01/08 54yo male with HIV here for weakness. Patient eating okay. No CP. Feels well. No abd pain. Alert and no specific complaints . Exam Narrative: Exam Narrative: AF 120/86 86 18 100 % ra Gen - NARD sitting in chair Chest - clear CV - RRR S1/S2, nml RR Abd - soft, NT/ND, +BS Ext - no pedal edema; Neuro - dysarthric speech. Mild left-sided weakness. Psych - normal mood and affect. Skin -Diffuse dry scaly skin with flaking. Objective Data Vital Signs Vital Signs: Vital Signs - 24 hr 01/09/20 14:00 01/09/20 21:56 Temperature 37.1 C 38.1 C H Pulse Rate 92 Respiratory Rate 20 Blood Pressure 120/86 Pulse Oximetry 93 Intake/Output Intake/Output: Intake & Output 01/06/20 01/07/20 01/08/20 01/09/20 23:59 23:59 23:59 23:59 Intake Total 2320 830 1000 370 Output Total 550 Balance 9694 249 7474 370 Meds/Results Medications: Active Medications Generic Name Dose Route Start Last Admin Trade Name Freq PRN Reason Stop Dose Admin Acetaminophen 650 mg 01/01/20 09:52 01/09/20 21:56 Tylenol Tablet PO 650 mg Q6H PRN Administration Mild Pain (1-3) or Fever Amlodipine Besylate 10 mg 01/02/20 09:00 01/04/20 09:10 Norvasc PO Not Given DAILY [facility] Amlodipine Besylate 5 mg 01/06/20 09:00 01/09/20 08:06 Norvasc PO 5 mg QAM BESS Administration Docusate Sodium 100 mg 01/02/20 10:15 01/09/20 21:56 Colace Capsule PO 100 mg Q12HR BESS Administration Enoxaparin Sodium 40 mg 01/07/20 09:00 01/09/20 08:07 Lovenox SUB-Q 40 mg DAILY BESS Administration Nystatin 5 ml 01/08/20 21:00 01/09/20 21:56 Nystatin 100,000 Units/Ml Susp PO 5 ml QID BESS Administration Promethazine HCl 12.5 mg 01/01/20 02:27 Phenergan Inj IV PUSH Q6H PRN Nausea Valac
[2020-01-09 22:55] VITALS: TEMP 36.7
[2020-01-10 06:00] VITALS: BP 115/70; PULSE 67; RESP 20; TEMP 36.8; O2SAT 96
[2020-01-10 06:24] LABS: Basophils Absolute Auto 0.1 K/mm3 (0.0-0.1); Basophils Percent Auto 0.8 % (0.2-1.2); Eosinophils Absolute Auto 0.4 K/mm3 (0-0.3); Eosinophils Percent Auto 3.7 % (0-4.4); Hematocrit 26.4 % (42.0-52.0); Hemoglobin 8.3 g/dL (14.0-18.0); Immature Granulocyte Absolute 0.08 K/mm3 (0.00-0.031); Immature Granulocyte Percent A 0.8 % (0-0.5); Lymphocytes Absolute Auto 1.43 K/mm3 (0.9-3.2); Lymphocytes Percent Auto 13.6 % (18.3-44.2); Mean Corpuscular HGB Conc 31.4 g/dl (32-36); Mean Corpuscular Hemoglobin 24.5 pg (26-34); Mean Corpuscular Volume 77.9 fl (80-100); Mean Platelet Volume 9.1 fl (7.4-10.4); Monocytes Absolute Auto 0.8 K/mm3 (0.1-0.6); Monocytes Percent Auto 7.4 % (2.6-8.5); Neutrophils Absolute Auto 7.8 K/mm3 (1.3-6.7); Neutrophils Percent Auto 73.7 % (45.5-73.1); Platelet Count Result 486 k/mm3 (150-375); Red Blood Count 3.39 M/mm3 (4.6-6.20); Red Cell Distribution Width 18.7 % (11.5-14.5); White Blood Count 10.5 K/mm3 (4.5-10.0)
[2020-01-10 06:39] LABS: Potassium 3.9 mmol/L (3.4-5.0)
[2020-01-10] MEDS: amLODIPine BESYLATE 5 MG TABLET PO (08:52)
[2020-01-10] MEDS: ENOXAPARIN 40 MG/0.4 ML SYRINGE SUB-Q (08:53)
[2020-01-10] MEDS: DOCUSATE SODIUM 100 MG CAPSULE PO ×2 (08:53→21:23)
[2020-01-10] MEDS: NYSTATIN 100,000 UNITS/ML SUSP 5 ML ORAL.SUSP PO ×4 (08:54→21:23)
[2020-01-10] MEDS: valACYclovir HCL 500 MG TABLET PO (08:54)
[2020-01-10 09:20] LABS: Anion Gap 9 mmol/L (8-16); Blood Urea Nitrogen 19 mg/dL (9-20); Calcium 9.5 mg/dL (8.4-10.2); Carbon Dioxide 26 mmol/L (22-30); Chloride 101 mmol/L (98-107); Estimated CRCL calculation 59 ml/min; Estimated Glomerular Filt Rate > 60; Glucose 101 mg/dL (75-110); Sodium 136 mmol/L (137-145)
--- NOTE | 2020-01-10 11:38 | WPDINFPN2 ---
Progress Note: A&P Assessment and Plan (1) HIV (human immunodeficiency virus infection): Code(s): B20 - Human immunodeficiency virus [HIV] disease Status: Acute Assessment and Plan: 1. HIV unknown stage at time of Dx. on Biktarvy with excellent viral suppression. Await CD4 panel 2. [employer]INEER lesions, thrombotic stroke? Has mild CSF pleocytosis as well, Differential Dx is broad including opportunistic infection, malignancy, degenerative brain conditions, vascular. Cytology no malignant cells. REC Continue Biktarvy. Await BILL virus PCR from spinal fluid (for PML). No other antimicrobials. Although his CSF AFB smear negative, I will add Quantiferon. If his non invasive evaluation is non diagnostic, I would be interested in Dr. Sears's opinion about brain biopsy. Subjective Date/time seen: 01/10/20 11:38 Interval history: no new complaints Exam Narrative: Exam Narrative: afebrile Const: General: no acute distress Other: cachectic as before Eyes: Sclera: sclerae normal Neck: Neck: supple Resp: Effort & Inspection: normal respiratory effort Auscultation: clear to auscultation bilaterally Cardio: Rate: regular rate Rhythm: regular rhythm Heart sounds: no murmurs GI: Inspection: non-distended GI Palp: Yes Firmness to palpation present (GI) and No Tenderness to palpation present (GI) Skin: General skin exam: normal color Neuro: Speech: No normal speech Objective Data Vital Signs Vital Signs: Vital Signs - 24 hr 01/09/20 14:00 01/09/20 21:56 01/09/20 22:00 Temperature 37.1 C 38.1 C H 38.1 C H Pulse Rate 92 86 Respiratory Rate 20 16 Blood Pressure 120/86 155/93 H Pulse Oximetry 93 92 01/09/20 22:55 01/10/20 06:00 Temperature 36.7 C 36.8 C Pulse Rate 67 Respiratory Rate 20 Blood Pressure 115/70 Pulse Oximetry 96 Intake/Output Intake/Output: Intake & Output 01/07/20 01/08/20 01/09/20 01/10/20 23:59 23:59 23:59 23:59 Intake Total 830 1000 770 150 Balance 830 1000 770 150 Meds/Results Medications: Active Medications Generic Name Dose Route Start Last Admin Trade Name Freq PRN Reason Stop Dose Admin Acetaminophen 650 mg 01/01/20 09:52 01/09/20 21:56 Tylenol Tablet PO 650 mg Q6H PRN Administration Mild Pain (1-3) or Fever Amlodipine Besylate 10 mg 01/02/20 09:00 01/04/20 09:10 Norvasc PO Not Given DAILY [facility] Amlodipine Besylate 5 mg 01/06/20 09:00 01/10/20 08:52 Norvasc PO 5 mg QAM BESS Administration Docusate Sodium 100 mg 01/02/20 10:15 01/10/20 08:53 Colace Capsule PO 100 mg Q12HR BESS Administration Enoxaparin Sodium 40 mg 01/07/20 09:00 01/10/20 08:53 Lovenox SUB-Q 40 mg DAILY BESS Administration Nystatin 5 ml 01/08/20 21:00 01/10/20 08:54 Nystatin 100,000 Units/Ml Susp PO 5 ml QID BESS Administration Promethazine HCl 12.5 mg 01/01/20 02:27 Phenergan Inj IV PUSH Q6H PRN Nausea Valacyclovir HCl 500 mg 01/02/20 09:00 01/10/20 08:54 Valtrex PO 500 mg DAILY BESS Administration Radiology Results: ITS Impressions Brain MRI 01/02/20 16:08 IMPRESSION: 1. Atypically prominent nonspecific increased T2 signal in the soraya without restricted diffusion and with possible associated curvilinear enhancement on the postcontrast images. The postcontrast images are however limited by motion and the latter finding could be artifactual. Differential would include sequela of chronic small vessel ischemic disease, infectious encephalitis including HIV or secondary opportunistic infection, HIV related progressive multifocal leukoencephalopathy, malignancy such as astrocytoma or lymphoma and demyelinating disease such as multiple sclerosis. Consider contrast-enhanced head CT more definitive assessment for enhancement. 2. Chronic old lacunar infarct at the right thalamus. 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 2: No significa
--- NOTE | 2020-01-10 11:49 | PCPTNOTE ---
Attempted to see patient for PT, however patient refused due to not feeling well.
[2020-01-10 13:38] LABS: Reference Lab Test Result Not Detected
[2020-01-10 14:00] VITALS: BP 137/85; PULSE 68; RESP 18; TEMP 36.5; O2SAT 96
--- NOTE | 2020-01-10 14:58 | PCPTNOTE ---
Attempted to see patient for PT this afternoon, however patient refused PT due to not feeling good, even with encouragement.
--- NOTE | 2020-01-10 15:49 | PM.IMPN ---
Progress Note: A&P Assessment and Plan (1) Weakness: Code(s): R53.1 - Weakness Status: Acute Assessment and Plan: Etiology unclear. Sister states patient may be acting up because she will not let him drink soda continuously without at least drinking some water. CT of the brain with contrast broad differential, possible infectious No change in medications. . Started PT and OT. LP 01/04 , cryptococcal neg, VDRL non reactive, protein and glucose normal. smears fungal and bacterial neg and no growth bacterially adn cytology negative , BC cultures neg so far. Quantiferon added. Creatinine up 01/03 but down after hydration. Brain biopsy being considered. (2) Lesion of soraya: Code(s): G93.9 - Disorder of brain, unspecified Status: Acute Assessment and Plan: As above. (3) Essential hypertension: Code(s): I10 - Essential (primary) hypertension Status: Acute Assessment and Plan: Blood pressure well controlled. Resumed Norvasc at 5 mg qd 01/05 . BP remaining stable. Continue to monitor. (4) History of stroke with residual effects: Code(s): I69.30 - Unspecified sequelae of cerebral infarction Status: Acute Assessment and Plan: was likely contributing to his weakness. continue PT and OT. (5) HIV (human immunodeficiency virus infection): Code(s): B20 - Human immunodeficiency virus [HIV] disease Status: Acute Assessment and Plan: Stable. Continue Biktarvy. family may need to bring this in. CD4 count still pending but viral load low less than 20. (6) Chronic anemia: Code(s): D64.9 - Anemia, unspecified Status: Acute Assessment and Plan: Hgb low but stable in the 7-9 range for past year. [place] initally anemia of chronic disease but iron studies showing this (at least partially) to be Fe deficincy. Ferritin elevated due to being an acute phase reactant. Will add iron. Check STR. (7) Osteoarthritis of left hip: Code(s): M16.12 - Unilateral primary osteoarthritis, left hip Status: Acute Assessment and Plan: Xray showing stable osteonecrosis of the right femoral head and no significant change to osteonecrosis of the left femoral head with articular surface collapse. Had discussed with ortho about injection for the left hip but held due to the above events. Continue PT/OT. (8) Non-sustained ventricular tachycardia: Code(s): I47.2 - Ventricular tachycardia Status: Acute Assessment and Plan: Telemetry strip reviewed and this is more consistent with artifact than nonsustained V-tach. Telemetry stopped. (9) DVT prophylaxis: Code(s): Z29.9 - Encounter for prophylactic measures, unspecified Status: Acute Assessment and Plan: Lovenox Subjective Date/time seen: 01/10/20 15:49 Interval history: Date of service: 01/09 54yo male with HIV here for weakness. Assuming care. Chart reviewed. Patient is sitting up feeding himself lunch. He denies chest pain or abdominal pain. No complaints. Patient is alert but confused. Exam Narrative: Exam Narrative: Tm 100.6 98.3 115/70 67 20 96% ra Gen - NARD sitting up in bed feeding himself lunch Chest - clear anteriorly CV - RRR S1/S2 Abd - soft, NT/ND, +BS Ext - no pedal edema Neuro - dysarthric speech. Mild left-sided weakness. Alert but confused Psych - normal mood and affect. Skin -Diffuse dry scaly skin with flaking. Objective Data Vital Signs Vital Signs: Vital Signs - 24 hr 01/09/20 21:56 01/09/20 22:00 01/09/20 22:55 Temperature 100.6 F H 100.6 F H 98.1 F Pulse Rate 86 Respiratory Rate 16 Blood Pressure 155/93 H Pulse Oximetry 92 01/10/20 06:00 Temperature 98.3 F Pulse Rate 67 Respiratory Rate 20 Blood Pressure 115/70 Pulse Oximetry 96 Intake/Output Intake/Output: Intake & Output 01/07/20 01/08/20 01/09/20 01/10/20
[2020-01-10 22:00] VITALS: BP 118/60; PULSE 64; RESP 20; TEMP 37.1; O2SAT 96
[2020-01-11 06:00] VITALS: BP 134/80; PULSE 56; RESP 18; TEMP 36.7; O2SAT 99
[2020-01-11 06:30] LABS: Hematocrit 28.8 % (42.0-52.0); Mean Corpuscular HGB Conc 31.3 g/dl (32-36); Mean Corpuscular Hemoglobin 24.3 pg (26-34); Mean Corpuscular Volume 77.8 fl (80-100); Mean Platelet Volume 8.6 fl (7.4-10.4); Platelet Count Result 501 k/mm3 (150-375); Red Cell Distribution Width 18.4 % (11.5-14.5); White Blood Count 9.8 K/mm3 (4.5-10.0)
[2020-01-11] MEDS: ENOXAPARIN 40 MG/0.4 ML SYRINGE SUB-Q (09:20)
[2020-01-11] MEDS: NYSTATIN 100,000 UNITS/ML SUSP 5 ML ORAL.SUSP PO ×4 (09:20→20:40)
[2020-01-11] MEDS: DOCUSATE SODIUM 100 MG CAPSULE PO ×2 (09:20→20:40)
[2020-01-11] MEDS: valACYclovir HCL 500 MG TABLET PO (09:20)
[2020-01-11] MEDS: amLODIPine BESYLATE 5 MG TABLET PO (09:21)
[2020-01-11] MEDS: FERROUS SULFATE 324 MG TABLET PO ×2 (09:59→17:36)
--- NOTE | 2020-01-11 10:20 | PCNFU ---
Nutrition Follow-Up Complete: Underweight as related to HIV/weakness as evidenced by BMI: 17.6 Adequate Intake of at least 75% of meals/supplements Goal: Pt current nutrition is Easy to chew, level 7, heart healthy. Nutrition recommendation: Agree with current recommendations Last recorded weight is 54.6 kg. Weight has remained stable + or - 1 lb. Bowel Motility: No bowel movement reported. Meds noted: Colace Labs Reviewed: Hgb (9) Hct (28.8) Na (136) Meds Noted: Norvasc, Colace, Lovenox, Ferrous Sulfate, Valtrex Additional Notes: Patient reported appetite was poor, when asked if smaller portions were more appropriate, patient shook head in disagreement and said appetite was good. When asked about N/V, diarrhea, and constipation patient stated he was not experiencing any issues. However, according to gastrointestinal report patient is experiencing constipation. Patient receiving Colace for constipation. RD will monitor every 5 days.
--- NOTE | 2020-01-11 10:39 | PCNFU ---
Nutrition Follow-Up Complete: Underweight as related to HIV/weakness as evidenced by BMI: 17.6 Goal: Adequate Intake of at least 75% of meals/supplements Patient is progressing towards goal with 71% intake. Patient receiving Enlive BID (350 kcal and 20 grams protein per serving) and drinking them according to report. When initially asked about appetite patient stated it was poor. Asked patient if smaller portion sizes were more appropriate for him, patient shook head no and stated appetite was good. When asked about N/V. diarrhea, and constipation patient reported no issues. However, according to gastrointestinal report patient is experiencing constipation and has not had a bowel movement. Will continue with current goal. Pt current nutrition is Heart Healthy, easy to chew level 7. Nutrition recommendation: Agree with current recommendations Last recorded weight is 54.6 kg. Bowel Motility: no bowel movement reported. Meds noted: Colace Labs Reviewed: Hgb (9) Hct (28.8) Na (136) Meds Noted: Colace, Norvasc, Lovenox, Ferrous sulfate, Valtrex Additional Notes: Skin is WNL RD will monitor every 7 days.
--- NOTE | 2020-01-11 12:46 | PCNSR ---
On 01/11/20, the student, Celestino Araiza, provided care and completed [facility] documentation on this patient. I have reviewed the student's documentation and agree with the findings.
--- NOTE | 2020-01-11 12:57 | WPDINFPN2 ---
Progress Note: A&P Assessment and Plan (1) HIV (human immunodeficiency virus infection): Code(s): B20 - Human immunodeficiency virus [HIV] disease Status: Acute Assessment and Plan: 1. HIV unknown stage at time of Dx. on Biktarvy with excellent viral suppression. Lab canceled the CD4 panel without my permission or knowledge. 2. MANAGER BASKETBALL lesions, thrombotic stroke? Has mild CSF pleocytosis as well, Differential Dx is broad including opportunistic infection, malignancy, degenerative brain conditions, vascular. BILL virus not detectable, and along with his low viral load this makes PML very unlikely REC Continue Biktarvy. No other antimicrobials. QFN pending. Consider brain biopsy vs observation and repeat CT, while remaining on medical therapy. Discussed Subjective Date/time seen: 01/11/20 12:57 Interval history: awake and arousable. Speaks minimally Exam Narrative: Exam Narrative: afebrile Const: General: no acute distress Other: appears chronically ill Resp: Effort & Inspection: normal respiratory effort Auscultation: clear to auscultation bilaterally Cardio: Rate: regular rate Rhythm: regular rhythm Heart sounds: no murmurs GI: Inspection: non-distended GI Palp: Yes Firmness to palpation present (GI) and No Tenderness to palpation present (GI) Objective Data Vital Signs Vital Signs: Vital Signs - 24 hr 01/10/20 14:00 01/10/20 22:00 01/11/20 06:00 Temperature 36.5 C 37.1 C 36.7 C Pulse Rate 68 64 56 L Respiratory Rate 18 20 18 Blood Pressure 137/85 118/60 134/80 Pulse Oximetry 96 96 99 Intake/Output Intake/Output: Intake & Output 01/08/20 01/09/20 01/10/20 01/11/20 23:59 23:59 23:59 23:59 Intake Total 1000 770 830 440 Balance 1000 770 830 440 Meds/Results Medications: Active Medications Generic Name Dose Route Start Last Admin Trade Name Freq PRN Reason Stop Dose Admin Acetaminophen 650 mg 01/01/20 09:52 01/09/20 21:56 Tylenol Tablet PO 650 mg Q6H PRN Administration Mild Pain (1-3) or Fever Amlodipine Besylate 10 mg 01/02/20 09:00 01/04/20 09:10 Norvasc PO Not Given DAILY BESS Amlodipine Besylate 5 mg 01/06/20 09:00 01/11/20 09:21 Norvasc PO 5 mg QAM BESS Administration Docusate Sodium 100 mg 01/02/20 10:15 01/11/20 09:20 Colace Capsule PO 100 mg Q12HR BESS Administration Enoxaparin Sodium 40 mg 01/07/20 09:00 01/11/20 09:20 Lovenox SUB-Q 40 mg DAILY BESS Administration Ferrous Sulfate 324 mg 01/11/20 08:00 01/11/20 09:59 Ferrous Sulfate PO 324 mg BIDWM BESS Administration Nystatin 5 ml 01/08/20 21:00 01/11/20 09:20 Nystatin 100,000 Units/Ml Susp PO 5 ml QID BESS Administration Promethazine HCl 12.5 mg 01/01/20 02:27 Phenergan Inj IV PUSH Q6H PRN Nausea Valacyclovir HCl 500 mg 01/02/20 09:00 01/11/20 09:20 Valtrex PO 500 mg DAILY BESS Administration Radiology Results: ITS Impressions Brain MRI 01/02/20 16:08 IMPRESSION: 1. Atypically prominent nonspecific increased T2 signal in the soraya without restricted diffusion and with possible associated curvilinear enhancement on the postcontrast images. The postcontrast images are however limited by motion and the latter finding could be artifactual. Differential would include sequela of chronic small vessel ischemic disease, infectious encephalitis including HIV or secondary opportunistic infection, HIV related progressive multifocal leukoencephalopathy, malignancy such as astrocytoma or lymphoma and demyelinating disease such as multiple sclerosis. Consider contrast-enhanced head CT more definitive assessment for enhancement. 2. Chronic old lacunar infarct at the right thalamus. 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 2: No significant change to osteonecrosis of the left femoral head with articular surface collapse. Stable secondary osteoarthritis. Head
--- NOTE | 2020-01-11 13:19 | PM.IMPN ---
Progress Note: A&P Assessment and Plan (1) Weakness: Code(s): R53.1 - Weakness Status: Acute Assessment and Plan: Etiology unclear. Sister states patient may be acting up because she will not let him drink soda continuously without at least drinking some water. CT of the brain with contrast 01/02 showing enhancing lesions in the soraya and left frontoparietal deep white matter. The differential diagnosis noted. Neuro and ID following. LP performed 01/04 showing nml glucose/protien, 31 nucleated cells with 16% neutrophils, negative cryptococcal Ag, nonreactive VDRL. Toxoplasma Ab negative. Smears for fungal and bacterial negative and no growth by cultures. BILL virus not detected. Quantiferon added. Discussed with ID and Neuro. Repet CT brain recommended to see if these findings are an evolving CVA. Called to discuss with family today and left message. (2) Lesion of soraya: Code(s): G93.9 - Disorder of brain, unspecified Status: Acute Assessment and Plan: As above. (3) Essential hypertension: Code(s): I10 - Essential (primary) hypertension Status: Acute Assessment and Plan: Blood pressure well controlled. Norvasc resumed 5 mg qd 01/05. BP remaining stable. Continue to monitor. (4) History of stroke with residual effects: Code(s): I69.30 - Unspecified sequelae of cerebral infarction Status: Acute Assessment and Plan: CT brain showing chronic old lacunar infarcts involving the right thalamus, bilateral basal ganglia, and anterior limb left internal capsule. May have new infarcts by the CT scan as well. Continue PT and OT. Will check lipid panel and conside starting statin therapy. Needs ASA but on hold for possible brain biopsy. (5) HIV (human immunodeficiency virus infection): Code(s): B20 - Human immunodeficiency virus [HIV] disease Status: Acute Assessment and Plan: Stable. Biktarvy on hold. CD4 count was cancelled. Viral load low less than 20. ID following. (6) Chronic anemia: Code(s): D64.9 - Anemia, unspecified Status: Acute Assessment and Plan: Hgb low but stable in the 7-9 range for past year. [place] initially anemia of chronic disease but iron studies showing this (at least partially) to be Fe deficincy. Ferritin elevated due to being an acute phase reactant. Hgb stable at 9.0 today. Iron added. STR pending. (7) Osteoarthritis of left hip: Code(s): M16.12 - Unilateral primary osteoarthritis, left hip Status: Acute Assessment and Plan: Xray showing stable osteonecrosis of the right femoral head and no significant change to osteonecrosis of the left femoral head with articular surface collapse. Had discussed with ortho about injection for the left hip but held due to the above events. Continue PT/OT. (8) Non-sustained ventricular tachycardia: Code(s): I47.2 - Ventricular tachycardia Status: Acute Assessment and Plan: Telemetry strip reviewed and this is more consistent with artifact than nonsustained V-tach. Telemetry stopped. (9) DVT prophylaxis: Code(s): Z29.9 - Encounter for prophylactic measures, unspecified Status: Acute Assessment and Plan: Lovenox Subjective Date/time seen: 01/11/20 13:19 Interval history: Date of service: 01/10 54yo male with HIV here for weakness and found to have soraya mass. Patient is alert but confused and essentially nonverbal. Exam Narrative: Exam Narrative: AF 98.1 134/80 56 18 99% ra Gen - NARD Chest - few expiratory rhonchi CV - RRR S1/S2 Abd - soft, NT/ND, +BS Ext - no pedal edema Neuro - essentially nonverbal to questions Psych - calm Skin - Diffuse dry scaly skin Objective Data Vital Signs Vital Signs: Vital Signs - 24 hr 01/10/20 14:00 01/10/20 22:00 01/11/20 06:00 Temperature 97.7 F 98.7 F 98.1 F Pulse Rate 68 64 56 L
[2020-01-11 14:00] VITALS: BP 131/88; PULSE 73; RESP 18; TEMP 36.7; O2SAT 100
[2020-01-11 20:00] VITALS: PULSE 73; RESP 18; O2SAT 100
[2020-01-11 22:00] VITALS: BP 146/87; PULSE 63; RESP 16; TEMP 36.6; O2SAT 100
[2020-01-12 06:00] VITALS: BP 147/88; PULSE 59; RESP 20; TEMP 36.4; O2SAT 100
[2020-01-12 06:54] LABS: Alanine Aminotransferase 51 U/L (4-50); Albumin Level 4.1 g/dL (3.5-5.1); Alkaline Phosphatase 139 U/L (38-126); Anion Gap 12 mmol/L (8-16); Aspartate Amino Transferase 45 U/L (17-59); Bilirubin,Total 0.4 mg/dL (0.2-1.3); Blood Urea Nitrogen 16 mg/dL (9-20); Calcium 9.7 mg/dL (8.4-10.2); Carbon Dioxide 23 mmol/L (22-30); Chloride 99 mmol/L (98-107); Cholesterol 116 mg/dL (0-200); Estimated CRCL calculation 52 ml/min; Estimated Glomerular Filt Rate > 60; Glucose 94 mg/dL (75-110); HDL Direct 14 mg/dL; Sodium 134 mmol/L (137-145); Triglycerides 166 mg/dL (<150)
[2020-01-12 07:05] LABS: LDL Cholesterol Direct 52 mg/dL
[2020-01-12] MEDS: ENOXAPARIN 40 MG/0.4 ML SYRINGE SUB-Q (09:16)
[2020-01-12] MEDS: DOCUSATE SODIUM 100 MG CAPSULE PO ×2 (09:16→21:22)
[2020-01-12] MEDS: valACYclovir HCL 500 MG TABLET PO (09:17)
[2020-01-12] MEDS: FERROUS SULFATE 324 MG TABLET PO ×2 (09:17→18:05)
[2020-01-12] MEDS: NYSTATIN 100,000 UNITS/ML SUSP 5 ML ORAL.SUSP PO ×4 (09:17→21:22)
[2020-01-12] MEDS: amLODIPine BESYLATE 5 MG TABLET PO (09:58)
--- NOTE | 2020-01-12 12:39 | PM.IMPN ---
Progress Note: A&P Assessment and Plan (1) Weakness: Code(s): R53.1 - Weakness Status: Acute Assessment and Plan: Etiology unclear. Sister states patient may be acting up because she will not let him drink soda continuously without at least drinking some water. MRI 01/01 concerned for atypically prominent nonspecific increased T2 signal in the soraya and recommended CT. CT of the brain with contrast 01/02 showing enhancing lesions in the soraya and left frontoparietal deep white matter. The differential diagnosis noted. LP performed 01/04 showing nml glucose/protein, 31 nucleated cells with 16% neutrophils, negative cryptococcal Ag, nonreactive VDRL. Toxoplasma Ab negative. Smears for fungal and bacterial negative and no growth by cultures. BILL virus not detected. Quantiferon pending. Discussed with ID and Neuro. Repeat CT brain with contrast repeated 01/10 showing faintly enhancing lesions in the left frontal lobe deep white matter and right frontoparietal deep white matter similar to the prior exam. Spoke with Neuro. Called and discussed with sister. Plan either is to proceed with brain bx or monitor clinically with repeat MRI in 6 weeks. She will discuss with family about next steps. (2) Lesion of soraya: Code(s): G93.9 - Disorder of brain, unspecified Status: Acute Assessment and Plan: As above. (3) Essential hypertension: Code(s): I10 - Essential (primary) hypertension Status: Acute Assessment and Plan: Blood pressure well controlled. Norvasc resumed 5 mg qd 01/05. BP remaining stable. Continue to monitor. (4) History of stroke with residual effects: Code(s): I69.30 - Unspecified sequelae of cerebral infarction Status: Acute Assessment and Plan: CT brain showing chronic old lacunar infarcts involving the right thalamus, bilateral basal ganglia, and anterior limb left internal capsule. May have new infarcts by the CT scan as well. Continue PT and OT. LDL 52, HDL 14 related to malnutrition and wasting. Hold statin therapy due to his weakness. Needs ASA but on hold for possible brain biopsy. (5) HIV (human immunodeficiency virus infection): Code(s): B20 - Human immunodeficiency virus [HIV] disease Status: Acute Assessment and Plan: Stable. Biktarvy on hold. CD4 count was cancelled. Viral load low less than 20. ID following. (6) Chronic anemia: Code(s): D64.9 - Anemia, unspecified Status: Acute Assessment and Plan: Hgb low but stable in the 7-9 range for past year. [place] initially anemia of chronic disease but iron studies showing this (at least partially) to be Fe deficincy. Ferritin elevated due to being an acute phase reactant. Hgb stable at 9.0 today. Iron added. STR pending. (7) Osteoarthritis of left hip: Code(s): M16.12 - Unilateral primary osteoarthritis, left hip Status: Acute Assessment and Plan: Xray showing stable osteonecrosis of the right femoral head and no significant change to osteonecrosis of the left femoral head with articular surface collapse. Had discussed with ortho about injection for the left hip but held due to the above events. Continue PT/OT. Appears to be walking better. (8) Non-sustained ventricular tachycardia: Code(s): I47.2 - Ventricular tachycardia Status: Acute Assessment and Plan: Telemetry strip reviewed on admission and this is more consistent with artifact than nonsustained V-tach. Telemetry stopped. (9) DVT prophylaxis: Code(s): Z29.9 - Encounter for prophylactic measures, unspecified Status: Acute Assessment and Plan: Lovenox Subjective Date/time seen: 01/12/20 12:39 Interval history: Date of service: 01/11 54yo male with HIV here for weakness and found to have soraya mass. Patient is alert but confused. Paucity of speech and garbled. Spoke with PT - rio
[2020-01-12 14:00] VITALS: BP 134/95; PULSE 86; RESP 18; TEMP 36.3; O2SAT 100
--- NOTE | 2020-01-12 14:09 | WPDINFPN2 ---
Progress Note: A&P Assessment and Plan (1) HIV (human immunodeficiency virus infection): Code(s): B20 - Human immunodeficiency virus [HIV] disease Status: Acute Assessment and Plan: 1. HIV unknown stage at time of Dx. on Biktarvy with excellent viral suppression. Lab canceled the CD4 panel without my permission or knowledge. 2. RECONSTRUCTIVE DENTIST lesions, thrombotic stroke? Has mild CSF pleocytosis as well, Differential Dx is broad including opportunistic infection, malignancy, degenerative brain conditions, vascular. BILL virus not detectable, and along with his low viral load this makes PML very unlikely, new CT stable findings REC Continue Biktarvy. No other antimicrobials. QFN pending. Consider brain biopsy vs observation and repeat imaging in future. Will sign off, he should f/u with his usual HIV treating MD (not me) Subjective Date/time seen: 01/12/20 14:09 Interval history: no new complaints Exam Narrative: Exam Narrative: afebrile Const: General: no acute distress Resp: Effort & Inspection: normal respiratory effort Auscultation: clear to auscultation bilaterally Cardio: Rate: regular rate Rhythm: regular rhythm Heart sounds: no murmurs GI: Inspection: non-distended GI Palp: Yes Soft to palpation and No Tenderness to palpation present (GI) Objective Data Vital Signs Vital Signs: Vital Signs - 24 hr 01/11/20 20:00 01/11/20 22:00 01/12/20 06:00 Temperature 36.6 C 36.4 C L Pulse Rate 73 63 59 L Respiratory Rate 18 16 20 Blood Pressure 146/87 H 147/88 H Pulse Oximetry 100 100 100 Intake/Output Intake/Output: Intake & Output 01/09/20 01/10/20 01/11/20 01/12/20 23:59 23:59 23:59 23:59 Intake Total 854 180 7507 340 Balance 190 838 9957 340 Meds/Results Medications: Active Medications Generic Name Dose Route Start Last Admin Trade Name Freq PRN Reason Stop Dose Admin Acetaminophen 650 mg 01/01/20 09:52 01/09/20 21:56 Tylenol Tablet PO 650 mg Q6H PRN Administration Mild Pain (1-3) or Fever Amlodipine Besylate 5 mg 01/06/20 09:00 01/12/20 09:58 Norvasc PO 5 mg QAM BESS Administration Docusate Sodium 100 mg 01/02/20 10:15 01/12/20 09:16 Colace Capsule PO 100 mg Q12HR BESS Administration Enoxaparin Sodium 40 mg 01/07/20 09:00 01/12/20 09:16 Lovenox SUB-Q 40 mg DAILY BESS Administration Ferrous Sulfate 324 mg 01/11/20 08:00 01/12/20 09:17 Ferrous Sulfate PO 324 mg BIDWM BESS Administration Multi-Ingred Cream/Lotion/Oil/Oint 1 applic 01/12/20 12:45 Minerin Creme TOPICAL QAM BESS Nystatin 5 ml 01/08/20 21:00 01/12/20 12:45 Nystatin 100,000 Units/Ml Susp PO 5 ml QID BESS Administration Promethazine HCl 12.5 mg 01/01/20 02:27 Phenergan Inj IV PUSH Q6H PRN Nausea Valacyclovir HCl 500 mg 01/02/20 09:00 01/12/20 09:17 Valtrex PO 500 mg DAILY BESS Administration Radiology Results: ITS Impressions Brain MRI 01/02/20 16:08 IMPRESSION: 1. Atypically prominent nonspecific increased T2 signal in the soraya without restricted diffusion and with possible associated curvilinear enhancement on the postcontrast images. The postcontrast images are however limited by motion and the latter finding could be artifactual. Differential would include sequela of chronic small vessel ischemic disease, infectious encephalitis including HIV or secondary opportunistic infection, HIV related progressive multifocal leukoencephalopathy, malignancy such as astrocytoma or lymphoma and demyelinating disease such as multiple sclerosis. Consider contrast-enhanced head CT more definitive assessment for enhancement. 2. Chronic old lacunar infarct at the right thalamus. 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 2: No significant change to osteonecrosis of the left femoral head with articular surface collapse. Stable secondary osteoarthritis. Renal Ultras
[2020-01-12] MEDS: EUCERIN CREAM 120 GM JAR 1 APPLIC TOPICAL (15:13)
[2020-01-12 20:00] VITALS: PULSE 86; RESP 18; O2SAT 100
[2020-01-12 22:00] VITALS: BP 140/90; PULSE 61; RESP 20; TEMP 36.9; O2SAT 92
[2020-01-13 06:00] VITALS: BP 141/86; PULSE 64; RESP 18; TEMP 37.1; O2SAT 100
[2020-01-13 08:00] VITALS: PULSE 64; RESP 18; O2SAT 100
[2020-01-13] MEDS: valACYclovir HCL 500 MG TABLET PO (09:10)
[2020-01-13] MEDS: FERROUS SULFATE 324 MG TABLET PO (09:11)
[2020-01-13] MEDS: DOCUSATE SODIUM 100 MG CAPSULE PO (09:11)
[2020-01-13] MEDS: EUCERIN CREAM 120 GM JAR 1 APPLIC TOPICAL (09:11)
[2020-01-13] MEDS: amLODIPine BESYLATE 5 MG TABLET PO (09:11)
[2020-01-13] MEDS: ENOXAPARIN 40 MG/0.4 ML SYRINGE SUB-Q (09:11)
[2020-01-13] MEDS: NYSTATIN 100,000 UNITS/ML SUSP 5 ML ORAL.SUSP PO (09:12)
--- NOTE | 2020-01-13 09:39 | PM.DS ---
DS: Admitting Diagnosis Admitting Diagnosis Admitting Diagnosis: Weakness, V-Tach Nonsustained DS: Discharge Diagnosis Discharge Diagnosis (1) Weakness: Code(s): R53.1 - Weakness Status: Acute Assessment and Plan: Etiology unclear but felt related to soraya lesion - either mass or CVA. MRI 01/01 concerned for atypically prominent nonspecific increased T2 signal in the soraya and recommended CT. CT of the brain with contrast 01/02 showing enhancing lesions in the soraya and left frontoparietal deep white matter. The differential diagnosis noted. LP performed 01/04 showing nml glucose/protein, 31 nucleated cells with 16% neutrophils, negative cryptococcal Ag, nonreactive VDRL. Toxoplasma Ab negative. Smears for fungal and bacterial negative and no growth by cultures. BILL virus not detected. Quantiferon pending. Repeat CT brain with contrast repeated 01/10 showing faintly enhancing lesions in the left frontal lobe deep white matter and right frontoparietal deep white matter similar to the prior exam. ID and Neuro were consulted. Plan for possible brain biopsy vs watch and wait approach discussed with family. After discussing it among themselves, the family (discussed with Kari) decided to proceed with watch and wait. Plan to repeat MRI brain in 6 weeks with followup with Dr Sears for further discussion about care plan. Patient has been noted to be able to feed himself. He also has been up walking with the walker at contact guard assist. Discussed with Dr Sears. Also discussed with Cassandra who is agreeable to take the patient home today. Talked with Care Coord who state HH is set up for therapy in the home. (2) Lesion of soraya: Code(s): G93.9 - Disorder of brain, unspecified Status: Acute Assessment and Plan: As above. (3) Essential hypertension: Code(s): I10 - Essential (primary) hypertension Status: Acute Assessment and Plan: Blood pressure well controlled. Norvasc resumed 5 mg qd 01/05. BP up slightly. Will advance back to home dose at discharge. (4) History of stroke with residual effects: Code(s): I69.30 - Unspecified sequelae of cerebral infarction Status: Acute Assessment and Plan: CT brain showing chronic old lacunar infarcts involving the right thalamus, bilateral basal ganglia, and anterior limb left internal capsule. May have new infarcts by the CT scan as well. Continue PT and OT. LDL 52, HDL 14. We did add very low dose Lipitor. Once the decision for no brain biopsy, we started ASA. (5) HIV (human immunodeficiency virus infection): Code(s): B20 - Human immunodeficiency virus [HIV] disease Status: Acute Assessment and Plan: Stable. Biktarvy on hold. CD4 count was cancelled. Viral load low less than 20. ID following. (6) Chronic anemia: Code(s): D64.9 - Anemia, unspecified Status: Acute Assessment and Plan: Hgb low but stable in the 7-9 range for past year. [place] initially anemia of chronic disease but iron studies showing this (at least partially) to be Fe deficincy. Ferritin elevated due to being an acute phase reactant. Hgb stable at 9.0 now. Iron added. STR pending. (7) Osteoarthritis of left hip: Code(s): M16.12 - Unilateral primary osteoarthritis, left hip Status: Acute Assessment and Plan: Xray showing stable osteonecrosis of the right femoral head and no significant change to osteonecrosis of the left femoral head with articular surface collapse. Had discussed with ortho about injection for the left hip but held due to the above events. PT/OT worked with patient here. Appears to be walking better. Continue PT/OT as outpatient. (8) Non-sustained ventricular tachycardia: Code(s): I47.2 - Ventricular tachycardia Status: Acute Assessment and Plan: Admitted for possible NSVT. Telemetry strip reviewed and this is more consistent with ar
[2020-01-13] MEDS: ASPIRIN 81 MG CHEWABLE TABLET PO (10:51)
[2020-01-13] MEDS: ATORVASTATIN 5 MG TABLET PO (10:51)
[2020-01-13] MEDS: DOCOSANOL 10% CREAM 2 GM 1 APPLIC TOPICAL (10:52)
--- NOTE | 2020-01-13 12:17 | WPDNEUROPN ---
Progress Note: A&P Assessment and Plan (1) Chronic anemia: Code(s): D64.9 - Anemia, unspecified Status: Acute (2) Lesion of soraya: Code(s): G93.9 - Disorder of brain, unspecified Status: Acute (3) Osteoarthritis of left hip: Code(s): M16.12 - Unilateral primary osteoarthritis, left hip Status: Acute (4) Weakness: Code(s): R53.1 - Weakness Status: Acute (5) Elevated alkaline phosphatase level: Code(s): R74.8 - Abnormal levels of other serum enzymes Status: Acute (6) Oral candidiasis: Code(s): B37.0 - Candidal stomatitis Status: Acute (7) Essential hypertension: Code(s): I10 - Essential (primary) hypertension Status: Acute (8) Hemiparesis: Code(s): G81.90 - Hemiplegia, unspecified affecting unspecified side Status: Acute (9) History of stroke with residual effects: Code(s): I69.30 - Unspecified sequelae of cerebral infarction Status: Acute (10) HIV (human immunodeficiency virus infection): Code(s): B20 - Human immunodeficiency virus [HIV] disease Status: Acute (11) History of stroke with current residual effects: Code(s): I69.30 - Unspecified sequelae of cerebral infarction Status: Acute (12) HSV (herpes simplex virus) infection: Code(s): B00.9 - Herpesviral infection, unspecified Status: Acute Additional Plan it seems like the patient's neurological status has improved and for sure there is has been no progression in his deficits since he came in several days ago I have discussed this case with the hospitalist in detail on at least couple of occasions and as I understand the family decided at this point to wait and watch and have a repeat brain MRI performed they for sure not ready neither the patient as best I can determine talking to him is ready for a brain biopsy he needs to be followed up with the repeat MRI of the brain with and without contrast and at that point the question would be whether to recommend a brain biopsy at a tertiary care center or else follow-up with the Infectious Disease depending upon his clinical course and the presentation The patient is ready to be discharged with home health to follow with the medications including the baby aspirin prevent any speak ischemic stroke in the future Review of Systems Review of Systems: All systems reviewed & are unremarkable except as noted in HPI and below Exam Const: General: comfortable and no acute distress HENMT: General nose exam: Normal nares present Mouth: Yes moist mucous membranes Eyes: General: appearance normal, both eyes and all related structures Other: decreased visual acuity in the right eye which predated the present hospitalization Neck: Neck: supple and no JVD Resp: Effort & Inspection: normal respiratory effort Auscultation: clear to auscultation bilaterally Cardio: Rate: regular rate Rhythm: regular rhythm GI: Auscultation: normal bowel sounds Skin: General skin exam: normal color and no rashes or lesions noted Neuro: Other: patient is awake alert well oriented seems to have speech defect which possibly could be reflective of pontine lesion seen on the CT and the MRI the left-sided weakness has improved his walking much better of course with a walker and little contact guard assistance he does have evidence of peripheral neuropathy which is most likely reflective of his underlying HIV disease Extrem: General: normal to inspection Psych: Mental Status: mental status grossly normal Objective Data Vital Signs Vital Signs: Vital Signs - 24 hr 01/12/20 14:00 01/12/20 20:00 01/12/20 22:00 Temperature 36.3 C L 36.9 C Pulse Rate 86 86 61 Respiratory Rate 18 18 20 Blood Pressure 134/95 H 140/90 Pulse Oximetry 100 100 92 01/13/20 06:00 01/13/20 08:00 Temperature 37.1 C Pulse Rate 64 64 Respiratory Rate 18 18 Blood Pressure 141/86 H Pulse Oximetry 100 100 Intak
[2020-01-13 13:25] LABS: NIL 0.03 IU/mL; Quantiferon TB Plus, 1T NEGATIVE (NEGATIVE); TB1-NIL 0.01 IU/mL
--- NOTE | 2020-01-19 13:58 | PC.NURSE ---
TB test is negative.
--- NOTE | 2020-01-31 13:45 | PC.NURSE ---
Fungal cx is negative.
--- NOTE | 2020-03-01 08:26 | PC.NURSE ---
AFB is negative. Dr. Ciera sawant.
== END 2020-01-13 11:03 | disposition home health service (06) | DRG 977 ==
LOC: ANHED 22:14 → ANHIMU 01-01 03:06 → ANH3MEDSUR 01-01 16:17
PROVIDERS: Internal Medicine; Internal Medicine Infectious Disease; Admitting Provider Internal Medicine; Emergency Provider Emergency Medicine; PCP Family Medicine; Visit Provider Internal Medicine
DX: R53.1 Weakness (principal); B20 Human immunodeficiency virus [HIV] disease; I69.354 Hemiplegia and hemiparesis following cerebral infarction affecting left non-dominant side; R64 Cachexia; B00.89 Other herpesviral infection; Z68.1 Body mass index [BMI] 19.9 or less, adult; G93.9 Disorder of brain, unspecified; I10 Essential (primary) hypertension; I69.311 Memory deficit following cerebral infarction; I69.322 Dysarthria following cerebral infarction; F17.210 Nicotine dependence, cigarettes, uncomplicated; D64.9 Anemia, unspecified; M16.12 Unilateral primary osteoarthritis, left hip; D72.829 Elevated white blood cell count, unspecified; R74.8 Abnormal levels of other serum enzymes; Z79.899 Other long term (current) drug therapy
CPT/HCPCS: 36415; 51701; 62328; 70450; 70470; 70553; 71045; 73502; 76775; 80048; 80053; 80061; 80069; 81001; 82607; 82728; 82746; 82945; 83540; 83550; 83735; 84157; 84238; 84443; 84484; 85025; 85027; 85610; 85730; 85999; 86403; 86480; 86592; 86777; 87015; 87040; 87070; 87086; 87088; 87102; 87116; 87206; 87536; 87798; 88108; 89051; 92610; 93005; 96360; 96361; 96372; 97110; 97116; 97161; 97165; 97530; 97535; 99285; A9270; A9577; G0378; J1650; J7030; Q9967

== ENCOUNTER 2020-01-20 10:22 | Outpatient (NON) | payer OTHER, SELFPAY ==
[2020-01-20 11:39] LABS: Alanine Aminotransferase 34 U/L (4-50); Albumin Level 3.8 g/dL (3.5-5.1); Alkaline Phosphatase 154 U/L (38-126); Anion Gap 11 mmol/L (8-16); Aspartate Amino Transferase 36 U/L (17-59); Bilirubin,Total 0.3 mg/dL (0.2-1.3); Blood Urea Nitrogen 10 mg/dL (9-20); Calcium 9.2 mg/dL (8.4-10.2); Carbon Dioxide 22 mmol/L (22-30); Chloride 102 mmol/L (98-107); Estimated Glomerular Filt Rate > 60; Glucose 73 mg/dL (75-110); Potassium 3.4 mmol/L (3.4-5.0); Sodium 135 mmol/L (137-145)
== END 2020-01-20 10:23 ==
PROVIDERS: PCP Family Medicine; Visit Provider Family Medicine
DX: I47.2 Ventricular tachycardia (principal); B00.9 Herpesviral infection, unspecified; D64.9 Anemia, unspecified; B20 Human immunodeficiency virus [HIV] disease; G93.9 Disorder of brain, unspecified
CPT/HCPCS: 80053